=== PATIENT | female | born 1980 | race Hispanic/Latino ===

== ENCOUNTER 2018-01-27 17:50 | Emergency (ER) | payer MEDICAID ==
--- NOTE | 2018-01-27 19:21 | ER ---
Nurse's Notes [facility] Name: Kendal Contreras Age: 37 yrs Sex: Female : 1980 Arrival Date: 01/27/2018 Time: 17:52 Bed 25 Private MD: Diagnosis: Dental caries, unspecified Presentation: 01/27 17:56 Presenting complaint: Patient states: Right lower jaw pain from tooth with lost filling aj for 2 weeks. Transition of care: patient was not received from another setting of care. Onset of symptoms was January 27, 2018. Initial Sepsis Screen: Does the patient meet any 2 criteria? No. Patient's initial sepsis screen is negative. Does the patient have a suspected source of infection? No. Patient's initial sepsis screen is negative. Care prior to arrival: None. 17:56 Method Of Arrival: Ambulatory 17:56 Acuity: CHARLEY 5 aj Triage Assessment: 17:58 General: Appears in no apparent distress. comfortable, Behavior is calm, cooperative, aj appropriate for age. Pain: Complains of pain in lower right second molar and lower right third molar. Neuro: Level of Consciousness is awake, alert, obeys commands, Oriented to person, place, time, situation, Appropriate for age. Respiratory: Airway is patent Respiratory effort is even, unlabored, Respiratory pattern is regular, symmetrical. Derm: Skin is intact, is healthy with good turgor, Skin is pink, warm \T\ dry. normal. 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 - Social history:: Smoking status: Patient uses tobacco products, denies chronic smoking, but will smoke occasionally. Screenin:23 Abuse screen: Denies threats or abuse. Denies injuries from another. Nutritional kr2 screening: No deficits noted. Tuberculosis screening: No symptoms or risk factors identified. Fall Risk None identified. Assessment: 18:21 General: Appears in no apparent distress. uncomfortable, well groomed, well developed, kr2 well nourished, Behavior is calm, cooperative, appropriate for age. Pain: Complains of pain in lower right third molar and lower right second molar Pain radiates to mouth Pain currently is 10 out of 10 on a pain scale. Quality of pain is described as aching, Pain began gradually, Is continuous, Alleviated by nothing. Aggravated by eating. Neuro: Level of Consciousness is awake, alert, obeys commands, Oriented to person, place, time, situation, Appropriate for age. Cardiovascular: Capillary refill < 3 seconds in bilateral fingers Patient's skin is warm and dry. Respiratory: Airway is patent Respiratory effort is even, unlabored, Respiratory pattern is regular, symmetrical. GI: Abdomen is flat, non-distended. : No signs and/or symptoms were reported regarding the genitourinary system. EENT: Nares are clear bilaterally Oral mucosa is moist. Derm: Skin is intact, is healthy with good turgor. Musculoskeletal: Circulation, motion, and sensation intact. 19:34 Reassessment: Patient appears in no apparent distress at this time. Patient and/or kr2 family updated on plan of care and expected duration. Pain level reassessed. Patient is alert, oriented x 3, equal unlabored respirations, skin warm/dry/pink. Patient states she has taken Clindamycin, [place] and Motrin before without any adverse reactions. Vital Signs: 17:58 BP 109 / 74; Pulse 72; Resp 18; Temp 98.2; Pulse Ox 99% on R/A; Weight 108.86 kg; aj Height 5 ft. 7 in. (170.18 cm); Pain 10/10; 19:35 BP 110 / 72; Pulse 70; Resp 18; Pulse Ox 99% on R/A; kr2 17:58 Body Mass Index 37.59 (108.86 kg, 170.18 cm) ED Course: 17:52 Patient arrived in ED. mr 17:57 Triage completed. aj 17:58 Arm band placed on right wrist. Patient placed in an exam room. aj 18:08 Belén Lubin FNP-C [facility]. sn 18:08 Chinedu Fiore MD is Attending Physician. sn 18:08 Lidia, Kathleen, RN is Primary Nurse. kr2 18:23 Patient has correct armband on for positive identification. Bed in low position. Call kr2 light in reach. Side rails up X 1. Pulse ox on. NIBP on. Door closed. Head of bed elevated. 19:35 No provider procedures requiring assistance completed. Patient did not have IV access kr2 during this emergency room visit. Administered Medications: 19:26 Drug: Clindamycin 300 mg Route: PO; kr2 19:34 Follow up: Response: Medication administered at discharge. kr2 19:26 Drug: [place] 5 mg-325 mg 1 tabs Route: PO; kr2 19:34 Follow up: Response: Medication administered at discharge. kr2 19:26 Drug: Motrin 400 mg Route: PO; kr2 19:33 Follow up: Response: No adverse reaction; Medication administered at discharge. kr2 Outcome: 19:20 Discharge ordered by . snw 19:35 Discharged to home ambulatory, with family. kr2 19:35 Condition: good 19:35 Discharge instructions given to patient, Instructed on discharge instructions, follow up and referral plans. medication usage, Demonstrated understanding of instructions, follow-up care, medications, Prescriptions given X 2. 19:36 Patient left the ED. kr2 Signatures: Merary Villareal, RN Belén Andres, CHART CHANGER-C CHART CHANGER-Janice Weaver Karey, RN RN kr2
--- NOTE | 2018-01-27 19:21 | EDPHYS ---
Physician Documentation [facility] Name: Kendal Contreras Age: 37 yrs Sex: Female : 1980 Arrival Date: 01/27/2018 Time: 17:52 Bed 25 Private MD: ED Physician Chinedu Fiore HPI: 01/27 19:33 This 37 yrs old Female presents to ER via Ambulatory with complaints of Facial snw pain. 19:33 The patient presents with broken tooth/teeth. The problem is located in the upper right snw third molar (#1) and lower right second molar (#31). Onset: The symptoms/episode began/occurred 3 day(s) ago, and became persistent. Duration: The symptoms are continuous. Modifying factors: The symptoms are alleviated by nothing. Severity of symptoms: At their worst the symptoms were moderate, severe. It is unknown whether or not the patient has had similar symptoms in the past. sees [facility]. 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 - Social history:: Smoking status: Patient uses tobacco products, denies chronic smoking, but will smoke occasionally. ROS: 19:31 Constitutional: Negative for fever, chills, and weight loss, Eyes: Negative for injury, snw pain, redness, and discharge, Neck: Negative for injury, pain, and swelling, Cardiovascular: Negative for chest pain, palpitations, and edema, Respiratory: Negative for shortness of breath, cough, wheezing, and pleuritic chest pain, Abdomen/GI: Negative for abdominal pain, nausea, vomiting, diarrhea, and constipation, Back: Negative for injury and pain, : Negative for injury, bleeding, discharge, and swelling, MS/Extremity: Negative for injury and deformity, Skin: Negative for injury, rash, and discoloration, Neuro: Negative for headache, weakness, numbness, tingling, and seizure. 19:31 ENT: Positive for dental pain, of the lower right third molar (#32) and upper right third molar (#1). Exam: 19:29 Constitutional: This is a well developed, well nourished patient who is awake, alert, snw and in no acute distress. Head/Face: Normocephalic, atraumatic. Eyes: Pupils equal round and reactive to light, extra-ocular motions intact. Lids and lashes normal. Conjunctiva and sclera are non-icteric and not injected. Cornea within normal limits. Periorbital areas with no swelling, redness, or edema. Neck: Trachea midline, no thyromegaly or masses palpated, and no cervical lymphadenopathy. Supple, full range of motion without nuchal rigidity, or vertebral point tenderness. No Meningismus. Chest/axilla: Normal chest wall appearance and motion. Nontender with no deformity. No lesions are appreciated. Cardiovascular: Regular rate and rhythm with a normal S1 and S2. No gallops, murmurs, or rubs. Normal PMI, no JVD. No pulse deficits. Respiratory: Lungs have equal breath sounds bilaterally, clear to auscultation and percussion. No rales, rhonchi or wheezes noted. No increased work of breathing, no retractions or nasal flaring. Abdomen/GI: Soft, non-tender, with normal bowel sounds. No distension or tympany. No guarding or rebound. No evidence of tenderness throughout. Back: No spinal tenderness. No costovertebral tenderness. Full range of motion. Skin: Warm, dry with normal turgor. Normal color with no rashes, no lesions, and no evidence of cellulitis. MS/ Extremity: Pulses equal, no cyanosis. Neurovascular intact. Full, normal range of motion. Neuro: Awake and alert, GCS 15, oriented to person, place, time, and situation. Cranial nerves II-XII grossly intact. Motor strength 5/5 in all extremities. Sensory grossly intact. Cerebellar exam normal. Normal gait. Psych: Awake, alert, with orientation to person, place and time. Behavior, mood, and affect are within normal limits. 19:29 ENT: External ear(s): are unremarkable, Ear canal(s): are normal, Nose: is normal, Mouth: is normal, Posterior pharynx: is normal, Dental exam: dental caries, that is moderate, specifically in the upper right third molar (#1) and lower right third molar (#32), missing teeth, specifically the lower right second molar (#31). Vital Signs: 17:58 BP 109 / 74; Pulse 72; Resp 18; Temp 98.2; Pulse Ox 99% on R/A; Weight 108.86 kg; aj Height 5 ft. 7 in. (170.18 cm); Pain 10/10; 19:35 BP 110 / 72; Pulse 70; Resp 18; Pulse Ox 99% on R/A; kr2 17:58 Body Mass Index 37.59 (108.86 kg, 170.18 cm) aj MDM: 18:09 Patient medically screened. snw 19:32 Data reviewed: vital signs, nurses notes. Data interpreted: Pulse oximetry: on room air snw is 99 %. Interpretation: normal. Counseling: I had a detailed discussion with the patient and/or guardian regarding: the historical points, exam findings, and any diagnostic results supporting the discharge/admit diagnosis, the need for outpatient follow up, to return to the emergency department if symptoms worsen or persist or if there are any questions or concerns that arise at home. Special discussion: Based on the history and exam findings, there is no indication for further emergent testing or inpatient evaluation. I discussed with the patient/guardian the need to see a dentist for further evaluation of the symptoms. I discussed with the patient/guardian the need to see the primary care provider for further evaluation of the symptoms. Administered Medications: 19:26 Drug: Clindamycin 300 mg Route: PO; kr2 19:34 Follow up: Response: Medication administered at discharge. kr2 19:26 Drug: [place] 5 mg-325 mg 1 tabs Route: PO; kr2 19:34 Follow up: Response: Medication administered at discharge. kr2 19:26 Drug: Motrin 400 mg Route: PO; kr2 19:33 Follow up: Response: No adverse reaction; Medication administered at discharge. kr2 Disposition: 01/27/18 19:20 Discharged to Home. Impression: Dental caries, unspecified. - Condition is Stable. - Discharge Instructions: Dental Pain, Diet and Dental Disease. - Prescriptions for Clindamycin HCl 150 mg Oral Capsule - take 2 capsule by ORAL route every 8 hours for 10 days; 60 capsule. Diclofenac Sodium 75 mg Oral Tablet Sustained Release - take 1 tablet by ORAL route 2 times per day; 30 tablet. - Medication Reconciliation Form, Thank You Letter, Antibiotic Education, Prescription Opioid Use form. - Follow up: Private Physician; When: 2 - 3 days; Reason: Recheck today's complaints, Continuance of care, Re-evaluation by your physician. Follow up: Emergency Department; When: As needed; Reason: Worsening of condition. Addendum: 01/29/2018 07:04 Co-signature as Attending Physician, Chinedu Fiore MD I agree with the assessment and w a plan of care. Signatures: Merary Villareal, RN RN Belén Weston, STOCK SHEETS CLEANER INSPECTOR-C STOCK SHEETS CLEANER INSPECTOR-Csnw Chinedu Fiore MD MD wa Reaves, Karey, RN RN kr2 Corrections: (The following items were deleted from the chart) 01/27 19:36 19:20 01/27/2018 19:20 Discharged to Home. Impression: Dental caries, unspecified. kr2 Condition is Stable. Forms are Medication Reconciliation Form, Thank You Letter, Antibiotic Education, Prescription Opioid Use. Follow up: Private Physician; When: 2 - 3 days; Reason: Recheck today's complaints, Continuance of care, Re-evaluation by your physician. Follow up: Emergency Department; When: As needed; Reason: Worsening of condition. snw
[2018-01-27] MEDS ORDERED: CLINDAMYCIN HCL 150 MG CAP ONE (19:22)
[2018-01-27] MEDS ORDERED: HYDROCODONE/APAP 5/325 MG TAB ONE (19:22)
[2018-01-27] MEDS ORDERED: IBUPROFEN 400 MG TAB ONE (19:23)
== END 2018-01-27 19:36 | disposition home or self-care (01) ==
LOC: ER 17:50
DX: K02.9 Dental caries, unspecified (principal); I10 Essential (primary) hypertension; G43.909 Migraine, unspecified, not intractable, without status migrainosus; R56.9 Unspecified convulsions; F41.9 Anxiety disorder, unspecified
CPT/HCPCS: 99283

== ENCOUNTER 2018-02-09 09:05 | Emergency (ER) | payer MEDICAID, OTHER ==
[2018-02-09 10:01] LABS: Urine Blood NEGATIVE (NEG); Urine Glucose NEGATIVE (NEG); Urine Protein NEGATIVE (NEG); Urine Specific Gravity 1.025 (1.005-1.030)
--- NOTE | 2018-02-09 10:36 | RAD REPORT ---
EXAM DESCRIPTION: RAD - Chest Single View - 02/09/2018 10:20 am CLINICAL HISTORY: Chest pain. COMPARISON: 04/30/2017 FINDINGS: Portable technique limits examination quality. The lungs are grossly clear. The heart is normal in size. No displaced fractures. IMPRESSION: No acute intrathoracic process suspected.
[2018-02-09] MEDS ORDERED: NA CHLORIDE 0.9% 1,000 ML ONE (11:14)
[2018-02-09] MEDS ORDERED: FOSPHENYTOIN PE 500 MG/10 ML VIAL ONE (11:14)
[2018-02-09 11:19] LABS: Hematocrit 45.2 % (36.0-45.0); MCH 29.5 pg (27.0-35.0); MCV 88.5 fL (80-100); RBC Red Blood Cell Count 5.11 M/uL (3.86-4.86)
[2018-02-09 11:20] LABS: Absolute Lymphocytes (CBC) 2.3 K/uL (0.7-4.9); Absolute Monocytes 0.5 K/uL (0.1-1.3); Basophils % 0.7 % (0-1.3); Eosinophils % 0.3 % (0-4.4); Lymphocytes % 25.8 % (15.3-44.8); MPV 9.4 fL (7.6-11.3); Monocytes % 5.8 % (3.3-12.3)
[2018-02-09] MEDS ORDERED: FOSPHENYTOIN PE 1,000 MG in NA CHLORIDE 0.9% 100 ML IV ONE (11:30)
[2018-02-09 11:36] LABS: Potassium 3.7 mEq/L (3.6-5.0)
[2018-02-09 11:38] LABS: Protime INR 1.08
[2018-02-09 11:42] LABS: Albumin 4.1 g/dL (3.2-5.5); Bilirubin Direct 0.1 mg/dL (0-0.2); Bilirubin Total 0.7 mg/dL (0.3-1.2); Magnesium 1.9 mg/dL (1.8-2.5); Protein, Total 7.4 g/dL (6.0-8.3)
--- NOTE | 2018-02-09 11:54 | EDPHYS ---
Physician Documentation [facility] Name: Kendal Contreras Age: 37 yrs Sex: Female : 1980 Arrival Date: 02/09/2018 Time: 09:13 Bed 19 Private MD: ED Physician Jorje Laura HPI: 02/09 10:28 This 37 yrs old Female presents to ER via Ambulatory with complaints of leeanne Vomiting, Chest Pain, Seizure. 10:28 The patient presents to the emergency department with nausea. Onset: The leeanne symptoms/episode began/occurred 2 day(s) ago. Possible causes: unknown. The symptoms are aggravated by nothing. The symptoms are alleviated by nothing. Associated signs and symptoms: The patient has no apparent associated signs or symptoms. Severity of symptoms: At their worst the symptoms were mild in the emergency department the symptoms are unchanged. The patient has not experienced similar symptoms in the past. 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 - Social history:: Smoking status: Patient uses tobacco products, denies chronic smoking, but will smoke occasionally. - Family history:: not pertinent. ROS: 10:28 Constitutional: Negative for fever, chills, and weight loss, Eyes: Negative for injury, leeanne pain, redness, and discharge, ENT: Negative for injury, pain, and discharge, Neck: Negative for injury, pain, and swelling, Cardiovascular: Negative for chest pain, palpitations, and edema, Respiratory: Negative for shortness of breath, cough, wheezing, and pleuritic chest pain, Abdomen/GI: Negative for abdominal pain, nausea, vomiting, diarrhea, and constipation, Back: Negative for injury and pain, : Negative for injury, bleeding, discharge, and swelling, MS/Extremity: Negative for injury and deformity, Skin: Negative for injury, rash, and discoloration, Neuro: Negative for headache, weakness, numbness, tingling, and seizure, Psych: Negative for depression, anxiety, suicide ideation, homicidal ideation, and hallucinations, Allergy/Immunology: Negative for hives, rash, and allergies, Endocrine: Negative for neck swelling, polydipsia, polyuria, polyphagia, and marked weight changes, Hematologic/Lymphatic: Negative for swollen nodes, abnormal bleeding, and unusual bruising. Exam: 10:29 Constitutional: This is a well developed, well nourished patient who is awake, alert, leeanne and in no acute distress. Head/Face: Normocephalic, atraumatic. Eyes: Pupils equal round and reactive to light, extra-ocular motions intact. Lids and lashes normal. Conjunctiva and sclera are non-icteric and not injected. Cornea within normal limits. Periorbital areas with no swelling, redness, or edema. ENT: Nares patent. No nasal discharge, no septal abnormalities noted. Tympanic membranes are normal and external auditory canals are clear. Oropharynx with no redness, swelling, or masses, exudates, or evidence of obstruction, uvula midline. Mucous membranes moist. Neck: Trachea midline, no thyromegaly or masses palpated, and no cervical lymphadenopathy. Supple, full range of motion without nuchal rigidity, or vertebral point tenderness. No Meningismus. Chest/axilla: Normal chest wall appearance and motion. Nontender with no deformity. No lesions are appreciated. Cardiovascular: Regular rate and rhythm with a normal S1 and S2. No gallops, murmurs, or rubs. Normal PMI, no JVD. No pulse deficits. Respiratory: Lungs have equal breath sounds bilaterally, clear to auscultation and percussion. No rales, rhonchi or wheezes noted. No increased work of breathing, no retractions or nasal flaring. Abdomen/GI: Soft, non-tender, with normal bowel sounds. No distension or tympany. No guarding or rebound. No evidence of tenderness throughout. Back: No spinal tenderness. No costovertebral tenderness. Full range of motion. Skin: Warm, dry with normal turgor. Normal color with no rashes, no lesions, and no evidence of cellulitis. MS/ Extremity: Pulses equal, no cyanosis. Neurovascular intact. Full, normal range of motion. Neuro: Awake and alert, GCS 15, oriented to person, place, time, and situation. Cranial nerves II-XII grossly intact. Motor strength 5/5 in all extremities. Sensory grossly intact. Cerebellar exam normal. Normal gait. Psych: Awake, alert, with orientation to person, place and time. Behavior, mood, and affect are within normal limits. 11:52 Musculoskeletal/extremity: DVT Exam: No signs of deep vein thrombosis. no pain, no leeanne swelling, no tenderness, negative Homans' sign noted on exam, no appreciated bluish discoloration, no erythema, no increased warmth. Vital Signs: 09:22 BP 104 / 71; Pulse 55; Resp 18; Temp 97.9; Pulse Ox 100% on R/A; Weight 108.86 kg; ph Height 5 ft. 7 in. (170.18 cm); Pain 9/10; 11:22 BP 124 / 84; Pulse 60; Resp 18; Temp 97.8; Pulse Ox 99% on R/A; Pain 8/10; ch 09:22 Body Mass Index 37.59 (108.86 kg, 170.18 cm) ph MDM: 09:34 Patient medically screened. [facility] 10:30 Data reviewed: vital signs, nurses notes, lab test result(s), EKG, radiologic studies, [facility] plain films. 02/09 09:40 Order name: Urine Dipstick--Ancillary (enter results); Complete Time: 11:52 02/09 09:40 Order name: Urine --Ancillary (enter results); Complete Time: 11:52 02/09 10:07 Order name: Basic Metabolic Panel 02/09 10:07 Order name: BNP; Complete Time: 11:52 02/09 10:07 Order name: CBC with Diff; Complete Time: 11:52 02/09 10:07 Order name: Ckmb 02/09 10:07 Order name: CPK 02/09 10:07 Order name: LFT's 02/09 10:07 Order name: Magnesium 02/09 10:07 Order name: PT-INR; Complete Time: 11:52 02/09 10:07 Order name: Ptt, Activated; Complete Time: 11:52 02/09 10:07 Order name: Troponin (emerg Dept Use Only); Complete Time: 11:52 02/09 10:07 Order name: XRAY Chest (1 view); Complete Time: 11:52 02/09 10:27 Order name: Dilantin; Complete Time: 11:52 [facility] 02/09 10:07 Order name: EKG; Complete Time: 10:08 02/09 10:07 Order name: Cardiac monitoring; Complete Time: 17:59 02/09 10:07 Order name: EKG - Nurse/Tech; Complete Time: 17:59 02/09 10:07 Order name: IV Saline Lock; Complete Time: 17:59 02/09 10:07 Order name: Labs collected and sent; Complete Time: 17:59 02/09 10:07 Order name: O2 Per Protocol; Complete Time: 17:59 02/09 10:07 Order name: O2 Sat Monitoring; Complete Time: 17:59 02/09 10:07 Order name: Urine Dipstick-Ancillary (obtain specimen); Complete Time: 17:59 ch Administered Medications: 11:24 Drug: NS 0.9% 1000 ml Route: IV; Rate: 1 bolus; Site: left forearm; ch 11:41 Drug: Fosphenytoin 1 grams Route: IVPB; Site: left forearm; ch 12:19 Follow up: IV Status: Completed infusion pt 12:25 Drug: Benadryl 12.5 mg Route: IVP; Site: left forearm; ch 13:02 Follow up: Response: No adverse reaction; Marked relief of symptoms Disposition: 02/09/18 11:53 Discharged to Home. Impression: Weakness, Epilepsy and recurrent seizures - history of, Vomiting, Other chest pain. - Condition is Stable. - Discharge Instructions: Seizure, Adult, Weakness, Fatigue, Seizure, Adult, [id number], Weakness, [id number]. - Prescriptions for Dilantin Kapseal 100 mg Oral Capsule - take 1 capsule by ORAL route every 8 hours; 30 capsule. Zofran 4 mg Oral Tablet - take 1 tablet by ORAL route every 12 hours As needed; 20 tablet. - Medication Reconciliation Form, Thank You Letter, Antibiotic Education, Prescription Opioid Use form. - Follow up: Private Physician; When: 2 - 3 days; Reason: Recheck today's complaints, Continuance of care, Re-evaluation by your physician. Follow up: David Diaz; When: 2 - 3 days; Reason: Recheck today's complaints, Continuance of care, Re-evaluation by your physician. - Problem is new. - Symptoms have improved. Signatures: Dispatcher [employer] EDMS Taylor Atkinson bd Rebecca Rosario RN RN Jorje Sharp MD MD cha Hall, Patricia RN RN elida Petersen, Letty ARANGO pt Corrections: (The following items were deleted from the chart) 11:54 11:53 02/09/2018 11:53 Discharged to Home. Impression: Weakness; Epilepsy and recurrent leeanne seizures - history of. Condition is Stable. Discharge Instructions: Weakness, Fatigue, Weakness, [id number], Seizure, Adult, Seizure, Adult, [id number]. Prescriptions for Dilantin Kapseal 100 mg Oral Capsule - take 1 capsule by ORAL route every 8 hours; 30 capsule. and Forms are Medication Reconciliation Form, Thank You Letter, Antibiotic Education, Prescription Opioid Use. Follow up: Private Physician; When: 2 - 3 days; Reason: Recheck today's complaints, Continuance of care, Re-evaluation by your physician. Follow up: David Daiz; When: 2 - 3 days; Reason: Recheck today's complaints, Continuance of care, Re-evaluation by your physician. Problem is new. Symptoms have improved. [facility] 13:32 11:54 02/09/2018 11:53 Discharged to Home. Impression: Weakness; Epilepsy and recurrent bd seizures - history of; Vomiting; Other chest pain. Condition is Stable. Discharge Instructions: Weakness, Fatigue, Weakness, [id number]-ib-[id number], Seizure, Adult, Seizure, Adult, Fave-be-Tyng. Prescriptions for Dilantin Kapseal 100 mg Oral Capsule - take 1 capsule by ORAL route every 8 hours; 30 capsule. and Forms are Medication Reconciliation Form, Thank You Letter, Antibiotic Education, Prescription Opioid Use. Follow up: Private Physician; When: 2 - 3 days; Reason: Recheck today's complaints, Continuance of care, Re-evaluation by your physician. Follow up: David Diaz; When: 2 - 3 days; Reason: Recheck today's complaints, Continuance of care, Re-evaluation by your physician. Problem is new. Symptoms have improved. leeanne
--- NOTE | 2018-02-09 11:54 | ER ---
Nurse's Notes [facility] Name: Kendal Contreras Age: 37 yrs Sex: Female : 1980 Arrival Date: 02/09/2018 Time: 09:13 Bed 19 Private MD: Diagnosis: Weakness;Epilepsy and recurrent seizures-history of;Vomiting;Other chest pain Presentation: 02/09 09:18 Presenting complaint: Patient states: "I've been having chest pain and vomiting and ph having seizures for the past 5 days. I've also been very depressed feeling." Reports N/V, chest pain, SOB, and unknown amount of seizures, reports seizure hx, has not taken dilantin for 2 weeks. Transition of care: patient was not received from another setting of care. Onset of symptoms was February 09, 2018. Initial Sepsis Screen: Does the patient meet any 2 criteria? No. Patient's initial sepsis screen is negative. Does the patient have a suspected source of infection? No. Patient's initial sepsis screen is negative. Care prior to arrival: None. 09:18 Method Of Arrival: Ambulatory ph 09:18 Acuity: CHARLEY 3 ph CHANCELLOR: 09:22 LMP N/A - Hysterectomy ph Historical: - Home Meds: 09:21 Dilantin Oral [Active]; Hydrochlorothiazide Oral [Active]; Lasix Oral [Active]; Topamax ph Oral [Active]; Trazodone Oral [Active]; - PMHx: 09:21 Anxiety; Asthma; HEART FAILURE; Hypertension; Migraines; Seizures; ph - PSHx: 09:21 Hysterectomy; Knee surgery; ph - Immunization history:: Adult Immunizations up to date. - Social history:: Smoking status: Patient uses tobacco products, denies chronic smoking, but will smoke occasionally. - Family history:: not pertinent. Screenin:46 Abuse screen: Denies threats or abuse. Denies injuries from another. Nutritional ch screening: No deficits noted. Tuberculosis screening: No symptoms or risk factors identified. Fall Risk None identified. Assessment: 10:46 General: Appears in no apparent distress. comfortable, Behavior is calm, cooperative, ch appropriate for age. Pain: Complains of pain in chest Pain currently is 8 out of 10 on a pain scale. Pain began suddenly. Neuro: Level of Consciousness is awake, alert, obeys commands, Oriented to person, place, time, situation, Contract Manager are equal bilaterally Moves all extremities. Full function Gait is steady, Speech is normal, Facial symmetry appears normal, Facial symmetry: tongue is midline, Pupils are PERRLA. Respiratory: Airway is patent Respiratory effort is even, unlabored, Breath sounds are clear bilaterally. GI: Abdomen is round non-distended, obese, Bowel sounds present X 4 quads. Abd is soft and non tender X 4 quads. Reports nausea, vomiting. : No signs and/or symptoms were reported regarding the genitourinary system. Derm: Skin is pink, warm \\T\\ dry. 11:22 Reassessment: Patient appears in no apparent distress at this time. Patient and/or ch family updated on plan of care and expected duration. Pain level reassessed. Patient is alert, oriented x 3, equal unlabored respirations, skin warm/dry/pink. Patient states feeling better. Patient states symptoms have improved. Vital Signs: 09:22 BP 104 / 71; Pulse 55; Resp 18; Temp 97.9; Pulse Ox 100% on R/A; Weight 108.86 kg; ph Height 5 ft. 7 in. (170.18 cm); Pain 9/10; 11:22 BP 124 / 84; Pulse 60; Resp 18; Temp 97.8; Pulse Ox 99% on R/A; Pain 8/10; ch 09:22 Body Mass Index 37.59 (108.86 kg, 170.18 cm) ph ED Course: 09:13 Patient arrived in ED. sb2 09:21 Triage completed. ph 09:22 Arm band placed on. ph 09:34 Jorje Laura MD is Attending Physician. leeanne 10:07 Rebecca Rosario, NBA is Primary Nurse. ch 10:14 X-ray completed. Portable x-ray completed in exam room. jr1 10:19 XRAY Chest (1 view) In Process Unspecified. EDMS 10:21 EKG done, by communications technologist. reviewed by Jorje Laura MD. at1 10:46 Patient has correct armband on for positive identification. Bed in low position. Call light in reach. Side rails up X 1. Adult w/ patient. phototypesetting equipment monitor on. Pulse ox on. NIBP on. 10:46 No provider procedures requiring assistance completed. ch 11:22 No apparent distress. Resting quietly. ch 11:22 Inserted saline lock: 22 gauge in left forearm, using aseptic technique. Blood ch collected. 11:52 David Diaz MD is Referral Physician. leeanne Administered Medications: 11:24 Drug: NS 0.9% 1000 ml Route: IV; Rate: 1 bolus; Site: left forearm; ch 11:41 Drug: Fosphenytoin 1 grams Route: IVPB; Site: left forearm; ch 12:19 Follow up: IV Status: Completed infusion pt 12:25 Drug: Benadryl 12.5 mg Route: IVP; Site: left forearm; ch 13:02 Follow up: Response: No adverse reaction; Marked relief of symptoms ch Outcome: 11:53 Discharge ordered by . leeanne 13:32 Patient left the ED. bd Signatures: Dispatcher [employer] EDMS Taylor Atkinson Christina, RN RN Jorje Sharp MD MD cha Townsend, Paige, RN RN pt Erin Samson jr1 Merary kessler, subscription clerk EKG Tat1 Anamaria Manuel RN RN Roro Asif sb2
[2018-02-09 11:58] LABS: CKMB Creatine Kinase MB 0.6 ng/ml (0.3-4.0)
[2018-02-09] MEDS ORDERED: DIPHENHYDRAMINE 50 MG/ML VIAL ONE (12:07)
--- NOTE | 2018-02-09 15:28 | EKG ---
Test Date: 2018-02-09 Test Time: 10:14:39 Machine Stonecutter: RADHA MEASUREMENT RESULTS: Intervals: Rate: 53 MN: 162 QRSD: 92 QT: 444 QTc: 416 [place]: P: 42 MN: 162 QRS: 11 T: 26 INTERPRETIVE STATEMENTS: Sinus bradycardia Otherwise normal ECG Compared to ECG 04/12/2017 02:16:28 No significant changes Electronically Signed On 02-09-18 15:25:47 CDT by Iglesia Perez
== END 2018-02-09 13:32 | disposition home or self-care (01) ==
LOC: ER 09:05
DX: R11.10 Vomiting, unspecified (principal); R07.89 Other chest pain; G40.909 Epilepsy, unspecified, not intractable, without status epilepticus; I10 Essential (primary) hypertension; F41.9 Anxiety disorder, unspecified; I50.9 Heart failure, unspecified; Z72.0 Tobacco use
CPT/HCPCS: 36415; 71045; 80048; 80076; 80185; 81003; 81025; 82550; 82553; 83735; 83880; 84484; 85025; 85610; 85730; 93005; 96365; 96375; 99284; J7030; Q2009

== ENCOUNTER 2018-04-21 09:52 | Emergency (ER) | payer MEDICAID, OTHER ==
[2018-04-21] MEDS ORDERED: HYDROCODONE/APAP 7.5/325 MG TAB ONE (10:29)
--- NOTE | 2018-04-21 11:34 | RAD REPORT ---
EXAM DESCRIPTION: VAS - Extremity Venous Uni Ltd - 04/21/2018 10:44 am CLINICAL HISTORY: PAIN Leg swelling and edema. COMPARISON: No comparisons FINDINGS: Right lower extremity venous system was interrogated with Doppler technique. Normal flow, compressibility and augmentation was noted. There is no DVT present. IMPRESSION: No evidence of right lower extremity deep venous thrombosis.
--- NOTE | 2018-04-21 11:43 | RAD REPORT ---
EXAM DESCRIPTION: RAD - Knee Right 3 View - 04/21/2018 10:47 am CLINICAL HISTORY: PAIN COMPARISON: No comparisons FINDINGS: Small screw is noted in the proximal tibia anteriorly. No fracture, dislocation or aggress anton marrow pattern. Trace suprapatellar joint effusion is present.
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
--- NOTE | 2018-04-21 11:49 | ER ---
Nurse's Notes [facility] Name: Kendal Contreras Age: 37 yrs Sex: Female : 1980 Arrival Date: 04/21/2018 Time: 09:55 Bed 15 Private MD: out of town, doctor Diagnosis: Pain in right lower leg;Morbid (severe) obesity due to excess calories Presentation: 04/21 10:04 Presenting complaint: Patient states: right leg pain started about a week ago. Pt sv reports pain with weight bearing or ROM and numbness. Reports hx of right leg surgery. Transition of care: patient was not received from another setting of care. Onset of symptoms was April 14, 2018. Care prior to arrival: None. 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 - Social history:: Smoking status: Patient/guardian denies using tobacco. - Ebola Screening: : No symptoms or risks identified at this time. - Family history:: not pertinent. - Hospitalizations: : No recent hospitalization is reported. Screenin:32 Abuse screen: Denies threats or abuse. Denies injuries from another. Nutritional aj1 screening: No deficits noted. Tuberculosis screening: No symptoms or risk factors identified. Assessment: 10:32 General: Appears in no apparent distress. uncomfortable, Behavior is calm, cooperative, aj1 appropriate for age. Pain: Complains of pain in posterior aspect of right knee, right calf and right knee Pain does not radiate. Pain currently is 8 out of 10 on a pain scale. Pain began one week ago Alleviated by rest, Aggravated by repositioning, weight bearing. Neuro: Level of Consciousness is awake, alert, obeys commands. Cardiovascular: Patient's skin is warm and dry. Respiratory: Airway is patent Respiratory effort is even, unlabored, Respiratory pattern is regular, symmetrical. GI: No signs and/or symptoms were reported involving the gastrointestinal system. : No signs and/or symptoms were reported regarding the genitourinary system. EENT: No signs and/or symptoms were reported regarding the EENT system. Derm: No signs and/or symptoms reported regarding the dermatologic system. Skin is pink, warm \T\ dry. normal. Musculoskeletal: Range of motion: limited in right knee Swelling present in right leg. 10:35 Reassessment: Ultrasound at bedside. aj1 11:47 Reassessment: Patient appears in no apparent distress at this time. No changes from aj1 previously documented assessment. Patient and/or family updated on plan of care and expected duration. Pain level reassessed. Patient is alert, oriented x 3, equal unlabored respirations, skin warm/dry/pink. 12:22 Reassessment: BITA wrap to right knee . aa5 12:23 Reassessment: Patient is alert, oriented x 3, equal unlabored respirations, skin aa5 warm/dry/pink. Vital Signs: 10:07 BP 121 / 82; Pulse 76; Resp 18; Temp 98.4(TE); Pulse Ox 98% ; Weight 108.86 kg; Height sv 5 ft. 7 in. (170.18 cm); Pain 8/10; 10:07 Body Mass Index 37.59 (108.86 kg, 170.18 cm) sv ED Course: 09:55 Patient arrived in ED. mr 09:56 out of town, doctor is Private Physician. mr 10:05 Triage completed. sv 10:06 Arm band placed on right wrist. sv 10:10 Virginia Biswas, NBA is Primary Nurse. aj1 10:12 Cecy Womack FNP is PHCP. kav 10:12 Giovani Brooks MD is Attending Physician. kav 10:13 Cecy Womack FNP is PHCP. kav 10:14 Cecy Womack FNP is PHCP. kav 10:32 Patient has correct armband on for positive identification. Bed in low position. Call aj1 light in reach. Side rails up X 1. 10:32 No provider procedures requiring assistance completed. aj1 10:41 Ultrasound completed. aa4 10:42 Extremity Venous Uni Ltd US In Process Unspecified. EDMS 10:43 X-ray completed. Portable x-ray completed in exam room. Patient tolerated procedure jb2 well. 10:45 XRAY Knee RIGHT 3 view In Process Unspecified. EDMS 12:23 Patient did not have IV access during this emergency room visit. aa5 Administered Medications: 10:32 Drug: [place] (7.5 mg-325 mg) 1 tabs Route: PO; aj1 12:22 Follow up: Response: No adverse reaction aa5 Outcome: 11:49 Discharge ordered by MD. kav 12:23 Discharged to home via wheelchair, with crutches. aa5 12:23 Condition: stable 12:23 Discharge instructions given to patient, Instructed on discharge instructions, follow up and referral plans. medication usage, crutch walking, Demonstrated understanding of instructions, follow-up care, medications, crutch walking, Prescriptions given X 2. 12:23 Patient left the ED. aa5 Signatures: Dispatcher [employer] EDVirginia Sheppard RN RN ajLaura Richards RN RN sv Cecy Womack, MEDICAL BILLING ASSOCIATE MEDICAL BILLING ASSOCIATE Janice Mohan mr Haro, Alexandru jb2 Merary Lopez aa4 Susie Florez, RN RN aa5 Corrections: (The following items were deleted from the chart) 10:07 10:04 Presenting complaint: Patient states: right leg pain started about a week ago. Pt sv reports pain with weight bearing or ROM. Reports hx of right leg surgery. sv
== END 2018-04-21 12:23 | disposition home or self-care (01) ==
LOC: ER 09:52
DX: M79.661 Pain in right lower leg (principal); E66.01 Morbid (severe) obesity due to excess calories; I10 Essential (primary) hypertension; G40.909 Epilepsy, unspecified, not intractable, without status epilepticus; J45.909 Unspecified asthma, uncomplicated; I50.9 Heart failure, unspecified
CPT/HCPCS: 93971; 99284

== ENCOUNTER 2018-07-11 13:43 | Emergency (ER) | payer MEDICAID ==
[2018-07-11 16:16] LABS: Absolute Lymphocytes (CBC) 2.4 K/uL (0.7-4.9); Absolute Monocytes 0.5 K/uL (0.1-1.3); Absolute Neutrophil 5.6 K/uL (1.8-8.0); Basophils % 0.3 % (0-1.3); Eosinophils % 0.2 % (0-4.4); Hematocrit 41.2 % (36.0-45.0); Lymphocytes % 28.4 % (15.3-44.8); MCH 29.6 pg (27.0-35.0); MCV 87.1 fL (80-100); RBC Red Blood Cell Count 4.73 M/uL (3.86-4.86)
[2018-07-11] MEDS ORDERED: FOSPHENYTOIN PE 500 MG/10 ML VIAL ONE (16:34)
[2018-07-11] MEDS ORDERED: NA CHLORIDE 0.9% 1,000 ML ONE (16:34)
[2018-07-11] MEDS ORDERED: NA CHLORIDE 0.9% 100 ML IV ONE (16:41)
--- NOTE | 2018-07-11 16:46 | RAD REPORT ---
EXAM DESCRIPTION: RAD - Chest Single View - 07/11/2018 4:31 pm CLINICAL HISTORY: COUGH Chest pain. COMPARISON: Chest Single View dated 02/09/2018; Chest Pa And Lat (2 Views) dated 04/30/2017; Chest Sing le View dated 04/12/2017 FINDINGS: Portable technique limits examination quality. The lungs are grossly clear. The heart is normal in size. No displaced fractures. IMPRESSION: No acute intrathoracic process suspected.
[2018-07-11] MEDS ORDERED: DIPHENHYDRAMINE 12.5MG/5ML LIQ ONE (17:01)
[2018-07-11 17:19] LABS: Urine Bacteria <20 /HPF (<20); Urine Culture Reflex Order NOT NEEDED; Urine RBC <5 /HPF (NONE SEEN)
--- NOTE | 2018-07-11 18:58 | EDPHYS ---
Physician Documentation [facility] Name: Kendal Contreras Age: 37 yrs Sex: Female : 1980 Arrival Date: 07/11/2018 Time: 13:46 Bed 25 Private MD: ED Physician Alex Nguyen HPI: 07/11 16:06 This 37 yrs old Female presents to ER via Ambulatory with complaints of ma2 Probable Seizure. 16:06 The patient presents with a history of multiple seizures. Seizure onset: just prior to ma2 arrival. Context: occurred at home, at a friend's home. Seizure Hx: Last seizure: The patient's last seizure was approximately 3 month(s) ago. Associated injury: The patient did not suffer any apparent associated injury. Current symptoms: Currently, the patient is not experiencing any symptoms. The patient has experienced similar episodes in the past. not taking her dilantin . 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 - Social history:: Smoking status: Patient/guardian denies using tobacco, Patient/guardian denies using alcohol, Patient/guardian denies using street drugs, The patient lives with family. - Ebola Screening: : Patient negative for fever greater than or equal to 101.5 degrees Fahrenheit, and additional compatible Ebola Virus Disease symptoms Patient denies exposure to infectious person Patient denies travel to an Ebola-affected area in the 21 days before illness onset. - Family history:: not pertinent. ROS: 16:06 Constitutional: Negative for fever, chills, and weight loss, Cardiovascular: Negative ma2 for chest pain, palpitations, and edema, Respiratory: Negative for shortness of breath, cough, wheezing, and pleuritic chest pain, Abdomen/GI: Negative for abdominal pain, nausea, diarrhea, and constipation, Back: Negative for injury and pain, MS/Extremity: Negative for injury and deformity, Skin: Negative for injury, rash, and discoloration, Psych: Negative for depression, anxiety, suicide ideation, homicidal ideation, and hallucinations. 16:06 Neuro: Positive for seizure activity, Negative for dizziness, hearing loss, weakness, acute changes. 16:06 All other systems are negative. ma2 Exam: 16:06 Constitutional: This is a well developed, well nourished patient who is awake, alert, ma2 and in no acute distress. Neck: Trachea midline, no thyromegaly or masses palpated, and no cervical lymphadenopathy. Supple, full range of motion without nuchal rigidity, or vertebral point tenderness. No Meningismus. Chest/axilla: Normal chest wall appearance and motion. Nontender with no deformity. No lesions are appreciated. Cardiovascular: Regular rate and rhythm with a normal S1 and S2. No gallops, murmurs, or rubs. Normal PMI, no JVD. No pulse deficits. Respiratory: Lungs have equal breath sounds bilaterally, clear to auscultation and percussion. No rales, rhonchi or wheezes noted. No increased work of breathing, no retractions or nasal flaring. Abdomen/GI: Soft, non-tender, with normal bowel sounds. No distension or tympany. No guarding or rebound. No evidence of tenderness throughout. MS/ Extremity: Pulses equal, no cyanosis. Neurovascular intact. Full, normal range of motion. Neuro: Awake and alert, GCS 15, oriented to person, place, time, and situation. Cranial nerves II-XII grossly intact. Motor strength 5/5 in all extremities. Sensory grossly intact. Cerebellar exam normal. Normal gait. Vital Signs: 13:53 BP 112 / 79; Pulse 68; Resp 18; Temp 98.5(O); Pulse Ox 100% on R/A; Weight 108.86 kg; Height 5 ft. 7 in. (170.18 cm); 14:12 BP 102 / 61 LA Supine (auto/lg); Pulse 64 MON; Resp 19 S; Temp 98.2(O); Pulse Ox 98% on mb4 R/A; 14:39 BP 110 / 69 LA Supine (auto/lg); Pulse 61 MON; Resp 20; Pulse Ox 96% on R/A; mb4 16:57 BP 115 / 79; Pulse 70; Resp 18; Pulse Ox 100% ; tl3 19:16 BP 103 / 62; Pulse 63; Resp 18; Pulse Ox 100% on R/A; tl3 13:53 Body Mass Index 37.59 (108.86 kg, 170.18 cm) Finley Coma Score: 13:54 Eye Response: spontaneous(4). Verbal Response: oriented(5). Motor Response: obeys commands(6). Total: 15. MDM: 14:55 Patient medically screened. ma2 16:06 Differential diagnosis: seizure, TIA, likely break through seizure d/t not taking her ma2 medication . 18:57 Data reviewed: vital signs, nurses notes, lab test result(s), EKG, radiologic studies. ma2 Counseling: I had a detailed discussion with the patient and/or guardian regarding: the historical points, exam findings, and any diagnostic results supporting the discharge/admit diagnosis, the presence of at least one elevated blood pressure reading (>120/80) during this emergency department visit. Response to treatment: the patient's symptoms have resolved after treatment. 07/11 15:33 Order name: CBC with Diff; Complete Time: 17:11 ma2 07/11 15:33 Order name: Creatinine for Radiology; Complete Time: 17:11 [facility] 07/11 15:34 Order name: Urine Microscopic Only; Complete Time: 18:25 ma2 07/11 16:16 Order name: Urine Dipstick--Ancillary (enter results) 07/11 15:33 Order name: IV Saline Lock; Complete Time: 16:57 ma2 07/11 15:34 Order name: Chest Single View XRAY; Complete Time: 17:11 ma2 07/11 16:16 Order name: Urine --Ancillary (enter results) 07/11 16:17 Order name: Urine Dipstick-Ancillary [facility] 07/11 16:17 Order name: Urine --Ancillary [facility] 07/11 15:33 Order name: Labs collected and sent; Complete Time: 16:57 ma2 07/11 15:34 Order name: Urine Dipstick-Ancillary (obtain specimen); Complete Time: 16:23 ma2 Administered Medications: 16:49 Drug: Fosphenytoin 20 mg/kg Route: IVPB; Infused Over: 1 hrs; Site: right forearm; tl3 Delivery: Primary tubing; 19:13 Follow up: IV Status: Completed infusion; IV Intake: 100ml tl3 16:50 Drug: NS 0.9% 1000 ml Route: IV; Rate: 1 bolus; Site: right forearm; Delivery: Primary tl3 tubing; 19:14 Follow up: IV Status: Completed infusion; IV Intake: 1000ml tl3 16:57 Drug: Benadryl 25 mg Route: PO; tl3 19:14 Follow up: Response: No adverse reaction tl3 Disposition: 07/11/18 18:57 Discharged to Home. Impression: Epilepsy and recurrent seizures. - Condition is Stable. - Discharge Instructions: Seizure, Pediatric. - Medication Reconciliation Form, Thank You Letter, Antibiotic Education, Prescription Opioid Use form. - Follow up: Private Physician; When: Tomorrow; Reason: Continuance of care. - Problem is new. - Symptoms are unchanged. Signatures: Dispatcher [employer] EDMS Terrence Dudley RN RN Alex Horton MD MD fl2 Ellen Turner RN RN tl3 Corrections: (The following items were deleted from the chart) 19:01 15:34 BASIC METABOLIC PANEL+C.LAB.BRZ ordered. EDMS EDMS 19:01 15:34 HEPATIC FUNCTION+C.LAB.BRZ ordered. EDMN EDMS 19:18 18:57 07/11/2018 18:57 Discharged to Home. Impression: Epilepsy and recurrent seizures. tl3 Condition is Stable. Forms are Medication Reconciliation Form, Thank You Letter, Antibiotic Education, Prescription Opioid Use. Follow up: Private Physician; When: Tomorrow; Reason: Continuance of care. Problem is new. Symptoms are unchanged. alessandro
--- NOTE | 2018-07-11 18:58 | ER ---
Nurse's Notes [facility] Name: Kendal Contreras Age: 37 yrs Sex: Female : 1980 Arrival Date: 07/11/2018 Time: 13:46 Bed 25 Private MD: Diagnosis: Epilepsy and recurrent seizures Presentation: 07/11 13:50 Presenting complaint: states: shes been having seizure for a week now and today hj its gotten worse, 5-6x; shes on seizure meds; last was 20 mins ago; pt states "i just feel week and my chest hurts;. Transition of care: patient was not received from another setting of care. Onset of symptoms was July 11, 2018. Risk Assessment: Do you want to hurt yourself or someone else? Patient reports no desire to harm self or others. Initial Sepsis Screen: Does the patient meet any 2 criteria? No. Patient's initial sepsis screen is negative. Does the patient have a suspected source of infection? No. Patient's initial sepsis screen is negative. Care prior to arrival: None. 13:50 Method Of Arrival: Ambulatory 13:50 Acuity: CHARLEY 3 Triage Assessment: 13:52 General: Appears in no apparent distress. uncomfortable, Behavior is uncooperative. 13:54 Pain: Complains of pain in chest. Neuro: Level of Consciousness is awake, alert, obeys commands, Oriented to person, place, time, situation, Appropriate for age. 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 - Social history:: Smoking status: Patient/guardian denies using tobacco, Patient/guardian denies using alcohol, Patient/guardian denies using street drugs, The patient lives with family. - Ebola Screening: : Patient negative for fever greater than or equal to 101.5 degrees Fahrenheit, and additional compatible Ebola Virus Disease symptoms Patient denies exposure to infectious person Patient denies travel to an Ebola-affected area in the 21 days before illness onset. - Family history:: not pertinent. Screenin:52 Abuse screen: Denies threats or abuse. Denies injuries from another. Nutritional hj screening: No deficits noted. Tuberculosis screening: No symptoms or risk factors identified. Fall Risk None identified. Assessment: 14:40 General: Appears in no apparent distress. well groomed, well developed, well nourished, tl3 Behavior is calm, cooperative, appropriate for age. Pain: Complains of pain in generalized body aches. Neuro: Level of Consciousness is awake, alert, obeys commands, Oriented to person, place, time, situation, Appropriate for age. Neuro: Seizure activity reported prior to arrival. family reports two seizures today with an hour of each other, each lasting about a minute. Cardiovascular: Patient's skin is warm and dry. Respiratory: Airway is patent Respiratory effort is even, unlabored, Respiratory pattern is regular, symmetrical. GI: No signs and/or symptoms were reported involving the gastrointestinal system. : No signs and/or symptoms were reported regarding the genitourinary system. EENT: No signs and/or symptoms were reported regarding the EENT system. Derm: No signs and/or symptoms reported regarding the dermatologic system. Musculoskeletal: No signs and/or symptoms reported regarding the musculoskeletal system. 17:00 Reassessment: Patient appears in no apparent distress at this time. No changes from tl3 previously documented assessment. Patient and/or family updated on plan of care and expected duration. Pain level reassessed. Patient is alert, oriented x 3, equal unlabored respirations, skin warm/dry/pink. 19:16 Reassessment: Patient appears in no apparent distress at this time. No changes from tl3 previously documented assessment. Patient and/or family updated on plan of care and expected duration. Pain level reassessed. Patient is alert, oriented x 3, equal unlabored respirations, skin warm/dry/pink. Vital Signs: 13:53 BP 112 / 79; Pulse 68; Resp 18; Temp 98.5(O); Pulse Ox 100% on R/A; Weight 108.86 kg; hj Height 5 ft. 7 in. (170.18 cm); 14:12 BP 102 / 61 LA Supine (auto/lg); Pulse 64 MON; Resp 19 S; Temp 98.2(O); Pulse Ox 98% on mb4 R/A; 14:39 BP 110 / 69 LA Supine (auto/lg); Pulse 61 MON; Resp 20; Pulse Ox 96% on R/A; mb4 16:57 BP 115 / 79; Pulse 70; Resp 18; Pulse Ox 100% ; tl3 19:16 BP 103 / 62; Pulse 63; Resp 18; Pulse Ox 100% on R/A; tl3 13:53 Body Mass Index 37.59 (108.86 kg, 170.18 cm) hj Jennings Coma Score: 13:54 Eye Response: spontaneous(4). Verbal Response: oriented(5). Motor Response: obeys hj commands(6). Total: 15. ED Course: 13:46 Patient arrived in ED. mr 13:51 Triage completed. hj 13:52 Arm band placed on right wrist. hj 13:52 Patient has correct armband on for positive identification. Fall risk band placed. hj Placed in gown. Bed in low position. Call light in reach. Side rails up X 1. Side rails up X2. Adult w/ patient. 14:14 Ellen Turner, RN is Primary Nurse. tl3 14:14 Seizure precautions initiated. Warm blanket given. satellite project site monitor on. Pulse ox on. mb4 NIBP on. 14:40 No provider procedures requiring assistance completed. Inserted saline lock: 20 gauge tl3 in right forearm, using aseptic technique. Blood collected. 14:55 Alex Nguyen MD is Attending Physician. ma2 16:22 X-ray completed. Portable x-ray completed in exam room. Patient tolerated procedure la2 well. 16:22 Urine --Ancillary (enter results) Sent. tl3 16:22 Urine Dipstick--Ancillary (enter results) Sent. tl3 16:32 Chest Single View XRAY In Process Unspecified. EDMS 19:16 IV discontinued, intact, bleeding controlled, No redness/swelling at site. Pressure tl3 dressing applied. Administered Medications: 16:49 Drug: Fosphenytoin 20 mg/kg Route: IVPB; Infused Over: 1 hrs; Site: right forearm; tl3 Delivery: Primary tubing; 19:13 Follow up: IV Status: Completed infusion; IV Intake: 100ml tl3 16:50 Drug: NS 0.9% 1000 ml Route: IV; Rate: 1 bolus; Site: right forearm; Delivery: Primary tl3 tubing; 19:14 Follow up: IV Status: Completed infusion; IV Intake: 1000ml tl3 16:57 Drug: Benadryl 25 mg Route: PO; tl3 19:14 Follow up: Response: No adverse reaction tl3 Intake: 19:13 IV: 100ml; Total: 100ml. tl3 19:14 IV: 1000ml; Total: 1100ml. tl3 Outcome: 18:57 Discharge ordered by . alessandro 19:16 Discharged to home ambulatory. tl3 19:16 Condition: stable 19:16 Discharge instructions given to patient, Instructed on discharge instructions, follow up and referral plans. Demonstrated understanding of instructions, follow-up care. 19:18 Patient left the ED. tl3 Signatures: Dispatcher [employer] BILLIE Nacho Destiney mr Terrence Dudley, RN RN Elle Overton Mohammad, MD MD ma2 Ellen Turner RN RN tl3 Amanda Killian4 Corrections: (The following items were deleted from the chart) 13:54 13:53 Pulse 68bpm; Resp 18bpm; Pulse Ox 100% RA; Temp 98.5F Oral; 108.86 kg; Height 5 hj ft. 7 in.; BMI: 37.5; hj 13:55 13:50 Presenting complaint: states: shes been having seizure for a week now and hj today its gotten worse, 5-6x; shes on seizure meds; last was 20 mins ago; hj
[2018-07-11 22:06] LABS: Urine Blood NEGATIVE (NEG); Urine Glucose NEGATIVE (NEG); Urine Protein NEGATIVE (NEG); Urine Specific Gravity 1.015 (1.005-1.030); Urine pH 6.5 (5.0-7.0)
== END 2018-07-11 19:18 | disposition home or self-care (01) ==
LOC: ER 13:43
DX: G40.802 Other epilepsy, not intractable, without status epilepticus (principal); I10 Essential (primary) hypertension; I50.9 Heart failure, unspecified
CPT/HCPCS: 36415; 71045; 81003; 81015; 81025; 85025; 96365; 96366; 99284; J7030; Q2009

== ENCOUNTER 2018-07-13 09:25 | Emergency (ER) | payer MEDICAID ==
[2018-07-13] MEDS ORDERED: NA CHLORIDE 0.9% 1,000 ML ONE (09:42)
[2018-07-13] MEDS ORDERED: ONDANSETRON 4 MG/2 ML VIAL ONE ×2 (09:42→11:28)
[2018-07-13 09:46] LABS: Absolute Lymphocytes (CBC) 1.8 K/uL (0.7-4.9); Absolute Monocytes 0.5 K/uL (0.1-1.3); Absolute Neutrophil 6.6 K/uL (1.8-8.0); Basophils % 0.2 % (0-1.3); Eosinophils % 0.2 % (0-4.4); Hematocrit 44.7 % (36.0-45.0); Lymphocytes % 20.1 % (15.3-44.8); MCH 29.6 pg (27.0-35.0); MCV 86.8 fL (80-100); MPV 9.7 fL (7.6-11.3); Monocytes % 5.3 % (3.3-12.3); RBC Red Blood Cell Count 5.15 M/uL (3.86-4.86)
[2018-07-13 10:15] LABS: Albumin 3.8 g/dL (3.4-5.0); Bilirubin Direct 0.1 mg/dL (0-0.2); Bilirubin Total 0.5 mg/dL (0.2-1.0); Phenytoin (Dilantin) Level 15.6 ug/mL (10.0-20.0); Potassium 3.7 mmol/L (3.5-5.1); Protein, Total 7.7 g/dL (6.4-8.2)
[2018-07-13] MEDS ORDERED: LORazepam 2 MG/ML VIAL ONE (10:40)
[2018-07-13] MEDS ORDERED: PROMETHAZINE 25 MG/ML VIAL ONE (10:54)
[2018-07-13 10:55] LABS: Urine Blood NEGATIVE (NEG); Urine Glucose NEGATIVE (NEG); Urine Protein NEGATIVE (NEG); Urine Specific Gravity 1.015 (1.005-1.030); Urine pH 7.5 (5.0-7.0)
[2018-07-13] MEDS ORDERED: MORPHINE 4 MG/ML SYR ONE (11:28)
[2018-07-13] MEDS ORDERED: NA CHLORIDE 0.9% 100 ML IV ONE (11:28)
[2018-07-13] MEDS ORDERED: NA CHLORIDE 0.9% 250 ML ONE (11:29)
[2018-07-13 11:34] LABS: Barbiturates NEGATIVE (NEGATIVE); Benzodiazepines NEGATIVE (NEGATIVE); Cocaine NEGATIVE (NEGATIVE); METHAMPHETAM NEGATIVE (NEGATIVE); Methadone NEGATIVE (NEGATIVE); Opiates NEGATIVE (NEGATIVE); Phencyclidine NEGATIVE (NEGATIVE); THC Cannibis POSITIVE (NEGATIVE)
--- NOTE | 2018-07-13 12:34 | EKG ---
Test Date: 2018-07-13 Test Time: 09:53:25 Lead Electrical Engineer: RADHA MEASUREMENT RESULTS: Intervals: Rate: 56 AK: 158 QRSD: 88 QT: 408 QTc: 393 [place]: P: 41 AK: 158 QRS: 12 T: 34 INTERPRETIVE STATEMENTS: Sinus bradycardia with sinus arrhythmia Otherwise normal ECG Compared to ECG 02/09/2018 10:14:39 No significant changes Electronically Signed On 07-13-18 12:32:47 CDT by Iglesia Perez
--- NOTE | 2018-07-13 13:44 | EDPHYS ---
Physician Documentation [facility] Name: Kendal Contreras Age: 37 yrs Sex: Female : 1980 Arrival Date: 07/13/2018 Time: 09:27 Bed 5 Private MD: ED Physician Giovani Brooks HPI: 07/13 09:30 This 37 yrs old Female presents to ER via Unassigned with complaints of rn Seizure, Abdominal Pain. 09:30 Seizure onset: just prior to arrival. Associated injury: The patient did not suffer any rn apparent associated injury. Current symptoms: Currently, the patient is not experiencing any symptoms. The patient has experienced similar episodes in the past. EMS reports 1 or 2 seizures at home, seen here recently for same, has been having seizures for 6-7 years, per patient related to drug use in past, takes dilantin but last 2 days has been having vomiting/diarrhea/lower abd pain, unable to keep food/fluids down. . Historical: - Allergies: 09:34 No Known Allergies; sv - PMHx: 09:34 Anxiety; Asthma; HEART FAILURE; Hypertension; Migraines; Seizures; sv - PSHx: 09:34 Hysterectomy; Knee surgery; sv - Immunization history:: Adult Immunizations up to date. - Social history:: Smoking status: Patient/guardian denies using tobacco. - Family history:: not pertinent. - Ebola Screening: : No symptoms or risks identified at this time. - Hospitalizations: : No recent hospitalization is reported. ROS: 09:30 Constitutional: Negative for fever, chills, and weight loss, Eyes: Negative for injury, rn pain, redness, and discharge, Neck: Negative for injury, pain, and swelling, Cardiovascular: Negative for chest pain, palpitations, and edema, Respiratory: Negative for shortness of breath, cough, wheezing, and pleuritic chest pain, Abdomen/GI: + abd pain/nausea/vomiting/diarrhea MS/Extremity: Negative for injury and deformity, Skin: Negative for injury, rash, and discoloration, Neuro: + seizure, no focal weakness/numbness Exam: 09:30 Constitutional: This is a well developed, well nourished patient who is awake, alert, rn and in no acute distress. Head/Face: Normocephalic, atraumatic. Eyes: Pupils equal round and reactive to light, extra-ocular motions intact. Lids and lashes normal. Conjunctiva and sclera are non-icteric and not injected. Cornea within normal limits. Periorbital areas with no swelling, redness, or edema. ENT: dry MM Cardiovascular: Regular rate and rhythm with a normal S1 and S2. No gallops, murmurs, or rubs. Normal PMI, no JVD. No pulse deficits. Respiratory: Lungs have equal breath sounds bilaterally, clear to auscultation and percussion. No rales, rhonchi or wheezes noted. No increased work of breathing, no retractions or nasal flaring. Abdomen/GI: soft, non-tender, no guarding/rebound MS/ Extremity: Pulses equal, no cyanosis. Neurovascular intact. Full, normal range of motion. Equal circumference. Neuro: Awake and alert, GCS 15, oriented to person, place, time, and situation. Cranial nerves II-XII grossly intact. Motor strength 5/5 in all extremities. Sensory grossly intact. Cerebellar exam normal. 09:54 ECG was reviewed by the Attending Physician. rn Vital Signs: 09:33 BP 107 / 75; Pulse 71; Resp 18; Temp 97.5; Pulse Ox 98% ; Pain 0/10; sv 10:05 BP 114 / 66; Pulse 64; Resp 18; Pulse Ox 99% ; sv 10:54 BP 101 / 69; Pulse 72; Resp 16; Pulse Ox 100% ; sv 11:38 BP 101 / 58; Pulse 59; Resp 18; Pulse Ox 99% ; sv 12:30 BP 103 / 79; Pulse 57; Resp 16; Pulse Ox 99% ; sv 13:35 BP 102 / 61; Pulse 59; Resp 16; Pulse Ox 99% ; sv [place] Coma Score: 09:22 Eye Response: spontaneous(4). Verbal Response: oriented(5). Motor Response: obeys sv commands(6). Total: 15. MDM: 09:29 Patient medically screened. rn 13:42 Differential diagnosis: seizure, dehydration. Data reviewed: vital signs, nurses notes, newspaper journalist test result(s), EKG, and as a result, I will discharge patient. Counseling: I had a detailed discussion with the patient and/or guardian regarding: the historical points, exam findings, and any diagnostic results supporting the discharge/admit diagnosis, lab results, the need for outpatient follow up, to return to the emergency department if symptoms worsen or persist or if there are any questions or concerns that arise at home. Response to treatment: the patient's symptoms have markedly improved after treatment, and as a result, I will discharge patient. Special discussion: I discussed with the patient/guardian in detail that at this point there is no indication for admission to the hospital. It is understood, however, that if the symptoms persist or worsen the patient needs to return immediately for re-evaluation. Based on the history and exam findings, there is no indication for further emergent testing or inpatient evaluation. I discussed with the patient/guardian the need to see the neurologist for further evaluation of the symptoms. I discussed with the patient/guardian the need to see the primary care provider for further evaluation of the symptoms. ED course: Pt improved, + dehdyration, states feels better, is hungry, no current abd pain, will prescribe zofran prn, recommend hydration and pcp f/u. . 07/13 09:30 Order name: Basic Metabolic Panel; Complete Time: : rn 07/13 09:30 Order name: CBC with Diff; Complete Time: : rn 07/13 09:30 Order name: Hepatic Function; Complete Time: : rn 07/13 09:30 Order name: Lipase; Complete Time: : rn 07/13 09:30 Order name: Urine Drug Screen; Complete Time: 13:44 rn 07/13 09:30 Order name: Dilantin; Complete Time: : rn 07/13 09:30 Order name: IV Saline Lock; Complete Time: 10: rn 07/13 09:30 Order name: Labs collected and sent; Complete Time: : rn 07/13 09:30 Order name: EKG; Complete Time: :30 rn 07/13 10:24 Order name: Urine Dipstick--Ancillary (enter results) bd 07/13 09:30 Order name: Urine Dipstick-Ancillary (obtain specimen); Complete Time: : rn 07/13 09:30 Order name: Urine Test (obtain specimen); Complete Time: : rn 07/13 09:30 Order name: EKG - Nurse/Tech; Complete Time: 10: rn EC:54 Rate is 56 beats/min. Rhythm is regular. QRS [place] is Normal. TN interval is normal. QRS rn interval is normal. QT interval is normal. No Q waves. T waves are Normal. No ST changes noted. Clinical impression: Sinus bradycardia. Interpreted by me. Administered Medications: 09:40 Drug: NS 0.9% 1000 ml Route: IV; Rate: 1000 ml; Site: right antecubital; sv 12:45 Follow up: Response: No adverse reaction; IV Status: Completed infusion; IV Intake: sv 600ml 09:41 Drug: Zofran 4 mg Route: IVP; Site: right antecubital; sv 10:01 Follow up: Response: No adverse reaction sv 10:38 Drug: Ativan 2 mg Route: IVP; Site: right antecubital; hb 10:50 Follow up: Response: No adverse reaction sv 10:49 Drug: Phenergan 12.5 mg Route: IVP; Site: right antecubital; sv 11:07 Follow up: Response: No adverse reaction sv Disposition: 07/13/18 13:43 Discharged to Home. Impression: Epilepsy and recurrent seizures, Dehydration. - Condition is Stable. - Discharge Instructions: Dehydration, Adult, Seizure, Adult. - Prescriptions for Zofran ODT 4 mg Oral tablet,disintegrating - place 1 tablet by TRANSLINGUAL route every 8-10 hours As needed; 15 tablet. - Medication Reconciliation Form, Thank You Letter, Antibiotic Education, Prescription Opioid Use form. - Follow up: Private Physician; When: As needed; Reason: Recheck today's complaints, Re-evaluation by your physician. - Problem is an ongoing problem. - Symptoms have improved. Signatures: Dispatcher [employer] Laura Bihsop RN RN Letty Petersen RN RN pt Giovani Brooks MD MD rn Baxter, Heather, RN RN Corrections: (The following items were deleted from the chart) 14:19 13:43 07/13/2018 13:43 Discharged to Home. Impression: Epilepsy and recurrent seizures; pt Dehydration. Condition is Stable. Forms are Medication Reconciliation Form, Thank You Letter, Antibiotic Education, Prescription Opioid Use. Follow up: Private Physician; When: As needed; Reason: Recheck today's complaints, Re-evaluation by your physician. Problem is an ongoing problem. Symptoms have improved. rn
--- NOTE | 2018-07-13 13:44 | ER ---
Nurse's Notes [facility] Name: Kendal Contreras Age: 37 yrs Sex: Female : 1980 Arrival Date: 07/13/2018 Time: 09:27 Bed 5 Private MD: Diagnosis: Epilepsy and recurrent seizures;Dehydration Presentation: 07/13 09:21 Presenting complaint: EMS states: pt was driving and felt like she was going to have a sv seizure and pulled over. EMS was called by bystander. Pt was post ictal and had 2 seizures in the truck lasting about 30-45 seconds, Ativan 2mg IVP given \\T\\ 0912. Pt is A\\T\\O x and drowsy. HR-90 BP 130/88 99% RA. Transition of care: patient was not received from another setting of care. Onset of symptoms was July 13, 2018. Care prior to arrival: IV initiated. 20 GA, in the right antecubital area, Glucose check: 108. 09:21 Method Of Arrival: EMS: [facility] 09:21 Acuity: CHARLEY 3 sv 09:23 Presenting complaint: Patient states: that she's been having n/v/d/abd pain at home and sv has been unable to keep her Dilantin down. Risk Assessment: Do you want to hurt yourself or someone else? Patient reports no desire to harm self or others. Initial Sepsis Screen: Does the patient meet any 2 criteria? No. Patient's initial sepsis screen is negative. Does the patient have a suspected source of infection? No. Patient's initial sepsis screen is negative. Triage Assessment: 09:22 General: Appears in no apparent distress. comfortable, obese, well developed, Behavior sv is calm, cooperative, appropriate for age, drowsy. Pain: Denies pain. EENT: No signs and/or symptoms were reported regarding the EENT system. Neuro: Level of Consciousness is awake, alert, obeys commands, Oriented to person, place, time, situation, Moves all extremities. Full function Gait is steady, Speech is normal. Respiratory: Respiratory effort is even, unlabored, Respiratory pattern is regular, symmetrical. Derm: Skin is pink, warm \\T\\ dry. Musculoskeletal: Range of motion: intact in all extremities. Historical: - Allergies: 09:34 No Known Allergies; sv - PMHx: 09:34 Anxiety; Asthma; HEART FAILURE; Hypertension; Migraines; Seizures; sv - PSHx: 09:34 Hysterectomy; Knee surgery; sv - Immunization history:: Adult Immunizations up to date. - Social history:: Smoking status: Patient/guardian denies using tobacco. - Family history:: not pertinent. - Ebola Screening: : No symptoms or risks identified at this time. - Hospitalizations: : No recent hospitalization is reported. Screenin:50 Abuse screen: Denies threats or abuse. Denies injuries from another. Nutritional sv screening: No deficits noted. Tuberculosis screening: No symptoms or risk factors identified. Fall Risk None identified. Assessment: 09:41 Reassessment: Patient appears in no apparent distress at this time. No changes from sv previously documented assessment. Patient and/or family updated on plan of care and expected duration. Pain level reassessed. Patient is alert, oriented x 3, equal unlabored respirations, skin warm/dry/pink. 10:31 Reassessment: Patient appears in no apparent distress at this time. No changes from sv previously documented assessment. Patient and/or family updated on plan of care and expected duration. Pain level reassessed. Patient is alert, oriented x 3, equal unlabored respirations, skin warm/dry/pink. 10:48 Reassessment: Patient appears in no apparent distress at this time. Patient and/or sv family updated on plan of care and expected duration. Pain level reassessed. Pt asking "Where am I at? What happened?" Informed pt of what brought her here to the hospital and that she is safe. Pt c/o nausea and being hungry. Informed Dr Brooks, medication ordered. 12:45 Reassessment: Patient appears in no apparent distress at this time. Pt appears to be sv resting with eyes closed. Respirations even and unlabored. 13:55 Reassessment: Patient appears in no apparent distress at this time. Patient and/or sv family updated on plan of care and expected duration. Pain level reassessed. Patient is alert, oriented x 3, equal unlabored respirations, skin warm/dry/pink. Pt informed that she is ok to be discharge but will need a ride home. Pt stated that she would call someone to come and get her. Informed pt that she will stay in the room until her ride gets here. Pt said ok and went back to sleep. Vital Signs: 09:33 BP 107 / 75; Pulse 71; Resp 18; Temp 97.5; Pulse Ox 98% ; Pain 0/10; sv 10:05 BP 114 / 66; Pulse 64; Resp 18; Pulse Ox 99% ; sv 10:54 BP 101 / 69; Pulse 72; Resp 16; Pulse Ox 100% ; sv 11:38 BP 101 / 58; Pulse 59; Resp 18; Pulse Ox 99% ; sv 12:30 BP 103 / 79; Pulse 57; Resp 16; Pulse Ox 99% ; sv 13:35 BP 102 / 61; Pulse 59; Resp 16; Pulse Ox 99% ; sv Chester Coma Score: 09:22 Eye Response: spontaneous(4). Verbal Response: oriented(5). Motor Response: obeys sv commands(6). Total: 15. ED Course: 09:27 Patient arrived in ED. aa5 09:27 Laura Nogueira, RN is Primary Nurse. sv 09:29 Giovani Brooks MD is Attending Physician. rn 09:32 Triage completed. sv 09:33 Arm band placed on. sv 09:50 Patient has correct armband on for positive identification. Placed in gown. Bed in low sv position. Call light in reach. Side rails up X2. Seizure precautions initiated. traffic monitor specialist on. Pulse ox on. NIBP on. Door closed. Warm blanket given. Head of bed elevated. 09:50 Initial lab(s) drawn, by me, sent to lab. Inserted saline lock: 20 gauge in right sv antecubital area, using aseptic technique. Blood collected. Flushed right antecubital with 5 ml normal saline. 09:55 Strep swab sent to lab. sv 10:07 EKG done, by forensic technician. reviewed by Giovani Brooks MD. at1 10:28 Urine collected: clean catch specimen, clear. sv 13:30 IV discontinued, intact, bleeding controlled, No redness/swelling at site. Pressure sv dressing applied. 14:15 No provider procedures requiring assistance completed. sv Administered Medications: 09:40 Drug: NS 0.9% 1000 ml Route: IV; Rate: 1000 ml; Site: right antecubital; sv 12:45 Follow up: Response: No adverse reaction; IV Status: Completed infusion; IV Intake: sv 600ml 09:41 Drug: Zofran 4 mg Route: IVP; Site: right antecubital; sv 10:01 Follow up: Response: No adverse reaction sv 10:38 Drug: Ativan 2 mg Route: IVP; Site: right antecubital; hb 10:50 Follow up: Response: No adverse reaction sv 10:49 Drug: Phenergan 12.5 mg Route: IVP; Site: right antecubital; sv 11:07 Follow up: Response: No adverse reaction sv Intake: 12:45 IV: 600ml; Total: 600ml. sv Output: 10:28 Urine: 200ml (Voided); Total: 200ml. sv Outcome: 13:43 Discharge ordered by . rn 14:19 Patient left the ED. pt Signatures: Laura Nogueira RN RN Letty Foster RN RN pt Giovani Brooks MD MD rn Calderon, Audri, RN RN aa5 Merary Bain, asphalt tile floor layer EKG Tat1 Jessica Killian RN RN hb
== END 2018-07-13 14:19 | disposition home or self-care (01) ==
LOC: ER 09:25
DX: E86.0 Dehydration (principal); I10 Essential (primary) hypertension
CPT/HCPCS: 36415; 80048; 80076; 80185; 80307; 81003; 83690; 85025; 93005; 96361; 96374; 96375; 99285; J2405; J2550; J7030

== ENCOUNTER 2018-08-15 04:14 | Emergency (ER) | payer MEDICAID ==
[2018-08-15 04:51] LABS: Absolute Lymphocytes (CBC) 1.5 K/uL (0.7-4.9); Absolute Monocytes 0.4 K/uL (0.1-1.3); Basophils % 0.3 % (0-1.3); Eosinophils % 0.1 % (0-4.4); Hematocrit 40.2 % (36.0-45.0); MCH 29.7 pg (27.0-35.0); MCV 88.3 fL (80-100); MPV 9.9 fL (7.6-11.3); Monocytes % 4.9 % (3.3-12.3); RBC Red Blood Cell Count 4.55 M/uL (3.86-4.86)
[2018-08-15 04:54] LABS: Protime INR 1.01
[2018-08-15 05:15] LABS: ALT/SGPT 19 U/L (12-78); AST/SGOT 16 U/L (15-37); Albumin 3.2 g/dL (3.4-5.0); Alkaline Phosphatase 87 U/L (45-117); BUN Blood Urea Nitrogen 12 mg/dL (7-18); Bicarbonate 23 mmol/L (21-32); Bilirubin Direct 0.1 mg/dL (0-0.2); Bilirubin Total 0.4 mg/dL (0.2-1.0); Glucose Level 109 mg/dL (74-106); Potassium 3.6 mmol/L (3.5-5.1); Protein, Total 6.5 g/dL (6.4-8.2); Sodium Level 142 mmol/L (136-145)
--- NOTE | 2018-08-15 05:48 | EKG ---
Test Date: 2018-08-15 Test Time: 05:05:33 Machine Helper: MADHURI MEASUREMENT RESULTS: Intervals: Rate: 74 WV: 160 QRSD: 92 QT: 394 QTc: 437 [place]: P: 68 WV: 160 QRS: 11 T: 43 INTERPRETIVE STATEMENTS: Normal sinus rhythm with sinus arrhythmia Normal ECG Compared to ECG 07/13/2018 09:53:25 Sinus bradycardia no longer present Electronically Signed On 08-15-18 05:47:59 YARN WASHER by Vitaliy Judge
[2018-08-15 06:13] LABS: Barbiturates NEGATIVE (NEGATIVE); Benzodiazepines NEGATIVE (NEGATIVE); Cocaine POSITIVE (NEGATIVE); METHAMPHETAM NEGATIVE (NEGATIVE); Methadone NEGATIVE (NEGATIVE); Opiates NEGATIVE (NEGATIVE); Phencyclidine NEGATIVE (NEGATIVE); THC Cannibis POSITIVE (NEGATIVE)
[2018-08-15 06:13] LABS: Urine Blood NEGATIVE (NEG); Urine Glucose NEGATIVE (NEG); Urine Protein NEGATIVE (NEG); Urine Specific Gravity 1.015 (1.005-1.030); Urine pH 6.5 (5.0-7.0)
--- NOTE | 2018-08-15 09:57 | ER ---
Nurse's Notes [facility] Name: Kendal Contreras Age: 37 yrs Sex: Female : 1980 Arrival Date: 08/15/2018 Time: 04:17 Bed 6 Private MD: Diagnosis: Prescription drug overdose;Cannabis abuse;Cocaine abuse Presentation: 08/15 04:25 Presenting complaint: EMS states: pt took an overdose of her trazodone while she was bb arguing with her kaushal approx 15 minutes prior to arrival pt also states she was drinking alcohol and smoking marijuana. Transition of care: patient was not received from another setting of care. Onset of symptoms was August 15, 2018. Risk Assessment: Do you want to hurt yourself or someone else? Patient reports no desire to harm self or others. Initial Sepsis Screen: Does the patient meet any 2 criteria? No. Patient's initial sepsis screen is negative. Does the patient have a suspected source of infection? No. Patient's initial sepsis screen is negative. Care prior to arrival: None. 04:25 Method Of Arrival: EMS: [facility] bb 04:25 Acuity: CHARLEY 2 bb 04:34 Note Poison control notified symptomatic support recommended may need magnesium if QT bb exceeds 500 milliseconds. CONFLICT RESOLUTION PROFESSIONAL: 04:28 LMP N/A - Hysterectomy bb Historical: - Allergies: 04:28 No Known Allergies; bb - Home Meds: 04:28 Albuterol Inhl [Active]; Dilantin Oral [Active]; Hydrochlorothiazide Oral [Active]; bb Lasix Oral [Active]; Topamax Oral [Active]; Trazodone Oral [Active]; Zyrtec Oral [Active]; - PMHx: 04:28 Anxiety; Asthma; HEART FAILURE; Hypertension; Migraines; Seizures; bb - PSHx: 04:28 Hysterectomy; Knee surgery; bb - Immunization history:: Adult Immunizations unknown. - Social history:: Smoking status: Patient uses tobacco products, smokes one-half pack cigarettes per day, Patient uses alcohol, occasionally. street drugs, marijuana. - Ebola Screening: : No symptoms or risks identified at this time. Screenin:22 Abuse screen: Denies threats or abuse. Nutritional screening: No deficits noted. ea Tuberculosis screening: No symptoms or risk factors identified. Fall Risk Assessment: 04:35 General: Appears uncomfortable. Pain: Denies pain. Neuro: Level of Consciousness is ea obeys commands, groggy. Oriented to person, place, time, situation. Cardiovascular: Heart tones S1 S2 present Patient's skin is warm and dry. Respiratory: Airway is patent Respiratory effort is even, unlabored, Respiratory pattern is regular, symmetrical, Breath sounds are clear bilaterally. GI: Abdomen is non-distended, obese, Bowel sounds present X 4 quads. Derm: Skin is clammy, Skin is normal, Skin temperature is warm. 05:50 Reassessment: Patient and/or family updated on plan of care and expected duration. Pain ea level reassessed. Patient is alert, oriented x 3, equal unlabored respirations, skin warm/dry/pink. family at bedside. 06:14 Reassessment: Patient and/or family updated on plan of care and expected duration. Pain ea level reassessed. Patient is alert, oriented x 3, equal unlabored respirations, skin warm/dry/pink. [place] from poison control contacted reported pt must be monitored for 6 hours. 07:11 Reassessment: Pt to bathroom via wheelchair with nurse. Assisted back to bed. Bed hb locked in low position, call light within reach. 08:18 Reassessment: Patient appears in no apparent distress at this time. Patient and/or hb family updated on plan of care and expected duration. Pain level reassessed. Patient is alert, oriented x 3, equal unlabored respirations, skin warm/dry/pink. 09:00 Reassessment: Patient appears in no apparent distress at this time. No changes from previously documented assessment. Patient and/or family updated on plan of care and expected duration. Pain level reassessed. Patient is alert, oriented x 3, equal unlabored respirations, skin warm/dry/pink. 09:41 Reassessment: at bedside, insisting pt be dishcarged. MARICRUZ Rosas notified. 09:42 Reassessment: MARICRUZ Rosas at bedside. Vital Signs: 04:28 BP 104 / 56; Pulse 79; Resp 18 S; Temp 99.1(A); Pulse Ox 97% on R/A; Weight 108.86 kg bb (R); Height 5 ft. 7 in. (170.18 cm) (R); Pain 0/10; 05:15 BP 105 / 65; Pulse 70; Resp 18; Pulse Ox 98% ; ea 06:00 BP 119 / 52; Pulse 71; Resp 18; Pulse Ox 98% ; ea 07:15 BP 98 / 58; Pulse 66; Resp 16; Pulse Ox 100% on R/A; Pain 0/10; hb 08:18 BP 99 / 53; Pulse 67; Resp 15; Pulse Ox 100% on R/A; hb 09:39 BP 96 / 56; Pulse 66; Resp 17; Pulse Ox 98% on R/A; hb 04:28 Body Mass Index 37.59 (108.86 kg, 170.18 cm) bb ED Course: 04:17 Patient arrived in ED. al2 04:27 Triage completed. bb 04:28 Arm band placed on Patient placed in an exam room, on a stretcher, on director of cardiac rehabilitation, bb on pulse oximetry. 04:35 Patient has correct armband on for positive identification. Bed in low position. Call ea light in reach. Side rails up X2. 04:38 Radha Fair, RN is Primary Nurse. ea 04:40 Inserted saline lock: 18 gauge in right antecubital area, using aseptic technique. ea Blood collected. 06:01 Ralph Andrews NP is PHCP. pm1 06:01 Jericho James MD is Attending Physician. pm1 07:08 Report given to Ramu ARANGO. ea 10:01 No provider procedures requiring assistance completed. IV discontinued, intact, hb bleeding controlled, No redness/swelling at site. Pressure dressing applied. Administered Medications: No medications were administered Outcome: 10:01 AMA AMA form signed hb 10:01 Condition: stable 10:01 Instructed on follow up and referral plans. Demonstrated understanding of instructions. 10:01 Patient left the ED. hb Signatures: Niurka Gordon RN RN bb Ralph Andrews, MARICRUZ ESCROW ASSISTANT pm1 Jessica Killian RN RN hb Antunez, Elena, RN RN ea Love, Angelica al2
--- NOTE | 2018-08-15 09:57 | EDPHYS ---
Physician Documentation [facility] Name: Kendal Contreras Age: 37 yrs Sex: Female : 1980 Arrival Date: 08/15/2018 Time: 04:17 Bed 6 Private MD: ED Physician Jericho James HPI: 08/15 06:10 This 37 yrs old Female presents to ER via EMS with complaints of Accidental pm1 Overdose. 06:10 The patient presents to the emergency department after a known overdose, that was pm1 accidental. Context: Method: the patient has a confirmed or suspected ingestion, Trazadone, Time: 1.5 hour ago, the OD/poisoning occurred at at home, and was witnessed by family, Psychiatric history: the patient has a known psychiatric disorder, Anxiety, insomnia. Associated signs and symptoms: Pertinent negatives: depression, diarrhea, dizziness, nausea, palpitations, shortness of breath, visual hallucinations, vomiting. The patient has not recently seen a physician. Patient reports that she was partying with her using marijuana and alcohol. Patient got in argument with him and decided to dare him to allow her to take additional Trazodone. She thought that he would stop her but he didn't and she started to worry and presented to the ER . VETERANS ADVISER: 04:28 LMP N/A - Hysterectomy bb Historical: - Allergies: 04:28 No Known Allergies; bb - Home Meds: 04:28 Albuterol Inhl [Active]; Dilantin Oral [Active]; Hydrochlorothiazide Oral [Active]; bb Lasix Oral [Active]; Topamax Oral [Active]; Trazodone Oral [Active]; Zyrtec Oral [Active]; - PMHx: 04:28 Anxiety; Asthma; HEART FAILURE; Hypertension; Migraines; Seizures; bb - PSHx: 04:28 Hysterectomy; Knee surgery; bb - Immunization history:: Adult Immunizations unknown. - Social history:: Smoking status: Patient uses tobacco products, smokes one-half pack cigarettes per day, Patient uses alcohol, occasionally. street drugs, marijuana. - Ebola Screening: : No symptoms or risks identified at this time. ROS: 06:10 Constitutional: Negative for fever, chills, and weight loss, Eyes: Negative for injury, pm1 pain, redness, and discharge, ENT: Negative for injury, pain, and discharge, Neck: Negative for injury, pain, and swelling, Cardiovascular: Negative for chest pain, palpitations, and edema, Respiratory: Negative for shortness of breath, cough, wheezing, and pleuritic chest pain, Abdomen/GI: Negative for abdominal pain, nausea, vomiting, diarrhea, and constipation, Back: Negative for injury and pain, : Negative for injury, bleeding, discharge, and swelling, MS/Extremity: Negative for injury and deformity, Skin: Negative for injury, rash, and discoloration, Neuro: Negative for headache, weakness, numbness, tingling, and seizure. Exam: 06:10 Constitutional: This is a well developed, well nourished patient who is awake, alert, pm1 and in no acute distress. Head/Face: Normocephalic, atraumatic. Eyes: Pupils equal round and reactive to light, extra-ocular motions intact. Lids and lashes normal. Conjunctiva and sclera are non-icteric and not injected. Cornea within normal limits. Periorbital areas with no swelling, redness, or edema. ENT: Nares patent. No nasal discharge, no septal abnormalities noted. Tympanic membranes are normal and external auditory canals are clear. Oropharynx with no redness, swelling, or masses, exudates, or evidence of obstruction, uvula midline. Mucous membranes moist. Neck: Trachea midline, no thyromegaly or masses palpated, and no cervical lymphadenopathy. Supple, full range of motion without nuchal rigidity, or vertebral point tenderness. No Meningismus. Chest/axilla: Normal chest wall appearance and motion. Nontender with no deformity. No lesions are appreciated. Cardiovascular: Regular rate and rhythm with a normal S1 and S2. No gallops, murmurs, or rubs. Normal PMI, no JVD. No pulse deficits. Respiratory: Lungs have equal breath sounds bilaterally, clear to auscultation and percussion. No rales, rhonchi or wheezes noted. No increased work of breathing, no retractions or nasal flaring. Abdomen/GI: Soft, non-tender, with normal bowel sounds. No distension or tympany. No guarding or rebound. No evidence of tenderness throughout. Back: No spinal tenderness. No costovertebral tenderness. Full range of motion. Skin: Warm, dry with normal turgor. Normal color with no rashes, no lesions, and no evidence of cellulitis. MS/ Extremity: Pulses equal, no cyanosis. Neurovascular intact. Full, normal range of motion. 06:10 Neuro: Orientation: is normal, Mentation: is normal, Motor: is normal, moves all fours, Sensation: is normal, no obvious gross deficits. 06:10 Psych: Behavior/mood is pleasant, cooperative, Affect is calm, Oriented to person, place, time, Patient has no thoughts/intents to harm self or others. Judgement / Insight is normal. Delusions/hallucinations are not present. Vital Signs: 04:28 BP 104 / 56; Pulse 79; Resp 18 S; Temp 99.1(A); Pulse Ox 97% on R/A; Weight 108.86 kg bb (R); Height 5 ft. 7 in. (170.18 cm) (R); Pain 0/10; 05:15 BP 105 / 65; Pulse 70; Resp 18; Pulse Ox 98% ; ea 06:00 BP 119 / 52; Pulse 71; Resp 18; Pulse Ox 98% ; ea 07:15 BP 98 / 58; Pulse 66; Resp 16; Pulse Ox 100% on R/A; Pain 0/10; hb 08:18 BP 99 / 53; Pulse 67; Resp 15; Pulse Ox 100% on R/A; hb 09:39 BP 96 / 56; Pulse 66; Resp 17; Pulse Ox 98% on R/A; hb 04:28 Body Mass Index 37.59 (108.86 kg, 170.18 cm) bb MDM: 06:10 ED course: Patient denies any suicidal or homicidal ideation. Patient was in an pm1 argument with her while partying with her with marijuana. She dared him to allow her to take more of her Trazodone and she thought that he would stop her. He did not and she stared to get scared that she took 10 total pills and came to the ER. She vomited pill fragments in the ER on arrival. 06:17 Patient medically screened. pm1 09:52 Refusal of service: The patient/guardian displays adequate decision making capability pm1 and despite a detailed discussion of alternatives, benefits, risks, and consequences refuses: Patient does not want to stay for recommended time frame of 6 hours by poison control. Informed patient that I wanted to continue cardiac monitoring and then get a repeat ECG. Patient does not want to wait because she wants to leave with her due to a family emergency. She denies homicidal or suicidal ideation and her family is at bedside and they support her decision to go home. 09:52 Data reviewed: vital signs. pm1 08/15 04:39 Order name: Acetaminophen 08/15 04:39 Order name: BMP 08/15 04:39 Order name: CBC with Diff; Complete Time: 06:01 08/15 04:39 Order name: Ethanol; Complete Time: 06:01 08/15 04:39 Order name: Hepatic Function; Complete Time: 06:01 08/15 04:39 Order name: Protime (+inr); Complete Time: 06:01 08/15 04:39 Order name: Ptt, Activated; Complete Time: 06:01 08/15 04:39 Order name: Salicylate; Complete Time: 06:01 08/15 04:39 Order name: Urine Drug Screen; Complete Time: 06:39 08/15 04:39 Order name: EKG; Complete Time: 04:40 08/15 04:39 Order name: EKG - Nurse/Tech; Complete Time: 06:01 08/15 04:40 Order name: Acetaminophen Level; Complete Time: 06:01 EDMS 08/15 04:40 Order name: Basic Metabolic Panel; Complete Time: 06:01 EDNJ 08/15 04:51 Order name: Urine Dipstick--Ancillary (enter results); Complete Time: 06:39 08/15 04:39 Order name: IV Saline Lock; Complete Time: 04:54 08/15 04:39 Order name: Labs collected and sent; Complete Time: 04:54 08/15 04:39 Order name: O2 Per Protocol; Complete Time: 06:01 08/15 04:39 Order name: O2 Sat Monitoring; Complete Time: 06:01 08/15 04:39 Order name: Urine Dipstick-Ancillary (obtain specimen); Complete Time: 04:54 ea Administered Medications: No medications were administered Disposition: 08/15/18 09:56 Patient has left against medical advice. Impression: Prescription drug overdose, Cannabis abuse, Cocaine abuse. - Patients states they are going to Home. - Condition is Stable. - Discharge Instructions: Stimulant Use Disorder-Cocaine, Cannabis Use Disorder, Drug Overdose. Follow up: Emergency Department; When: As needed; Reason: Worsening of condition, Recheck today's complaints, Continuance of care, Re-evaluation by your physician. Follow up: Private Physician; When: Upon discharge from the Emergency Department; Reason: Recheck today's complaints, Continuance of care, Re-evaluation by your physician. - Problem is new. - Symptoms have improved. Addendum: 08/22/2018 20:03 Co-signature as Attending Physician, Jericho combs Signatures: Dispatcher [employer] EDMS Jericho James MD MD pkl Ballard, Brenda, RN RN bb Ralph Andrews, CARPORT ERECTOR CARPORT ERECTOR pm1 Jessica Killian RN RN hb Antunez, Elena, RN RN ea Corrections: (The following items were deleted from the chart) 08/15 09:57 09:56 08/15/2018 09:56 Patients has left against medical advice. Impression: pm1 Prescription drug overdose. Patient states they are going to Home. Condition is Stable. Follow up: Emergency Department; When: As needed; Reason: Worsening of condition, Recheck today's complaints, Continuance of care, Re-evaluation by your physician. Follow up: Private Physician; When: Upon discharge from the Emergency Department; Reason: Recheck today's complaints, Continuance of care, Re-evaluation by your physician. Problem is new. Symptoms have improved. pm1 10:01 09:57 08/15/2018 09:56 Patients has left against medical advice. Impression: hb Prescription drug overdose; Cannabis abuse; Cocaine abuse. Patient states they are going to Home. Condition is Stable. Follow up: Emergency Department; When: As needed; Reason: Worsening of condition, Recheck today's complaints, Continuance of care, Re-evaluation by your physician. Follow up: Private Physician; When: Upon discharge from the Emergency Department; Reason: Recheck today's complaints, Continuance of care, Re-evaluation by your physician. Problem is new. Symptoms have improved. pm1
== END 2018-08-15 10:01 | disposition left against medical advice (07) ==
LOC: ER 04:14
DX: T50.901A Poisoning by unspecified drugs, medicaments and biological substances, accidental (unintentional), initial encounter (principal); Y92.009 Unspecified place in unspecified non-institutional (private) residence as the place of occurrence of the external cause; F14.10 Cocaine abuse, uncomplicated; F12.10 Cannabis abuse, uncomplicated; F41.9 Anxiety disorder, unspecified; G47.00 Insomnia, unspecified; I11.0 Hypertensive heart disease with heart failure; I50.9 Heart failure, unspecified; J45.909 Unspecified asthma, uncomplicated; F17.210 Nicotine dependence, cigarettes, uncomplicated; Z79.899 Other long term (current) drug therapy
CPT/HCPCS: 36415; 80048; 80076; 80307; 80320; 80329; 81003; 85025; 85610; 85730; 93005; 99284

== ENCOUNTER 2018-09-29 09:39 | Emergency (ER) | payer MEDICAID ==
--- NOTE | 2018-09-29 11:11 | RAD REPORT ---
EXAM DESCRIPTION: RAD - Chest Pa And Lat (2 Views) - 09/29/2018 11:04 am CLINICAL HISTORY: Congestion;Cough Chest pain. COMPARISON: Chest Single View dated 07/11/2018; Chest Single View dated 02/09/2018; Chest Pa And Lat (2 Views) dated 04/30/2017; Chest Single View dated 04/12/2017 FINDINGS: The lungs are emphysematous but clear. The heart is normal in size. No displaced fractures . Mild dextroscoliosis of the thoracic spine. IMPRESSION: No acute or concerning finding suspected.
[2018-09-29] MEDS ORDERED: ONDANSETRON 4 MG (ODT) TAB ONE (11:19)
--- NOTE | 2018-09-29 11:59 | ER ---
Nurse's Notes [facility] Name: Kendal Contreras Age: 37 yrs Sex: Female : 1980 Arrival Date: 09/29/2018 Time: 09:44 Bed 19 Private MD: out of town, doctor Diagnosis: Bronchitis, not specified as acute or chronic Presentation: 09/29 09:54 Presenting complaint: Patient states: Cough and congestion with chills for 2 days. ss Treating at home with OTC medications. Patient states "With this cough I can't smoke nothing, so everything hurts. I use marijuana to treat my chronic leg pain.". Transition of care: patient was not received from another setting of care. Onset of symptoms was September 27, 2018. Risk Assessment: Do you want to hurt yourself or someone else? Patient reports no desire to harm self or others. Initial Sepsis Screen: Does the patient meet any 2 criteria? No. Patient's initial sepsis screen is negative. Does the patient have a suspected source of infection? No. Patient's initial sepsis screen is negative. Note Patient using cell phone with no difficulty in triage. Care prior to arrival: None. 09:54 Method Of Arrival: Ambulatory ss 09:54 Acuity: CHARLEY 4 ss Triage Assessment: 09:56 General: Appears in no apparent distress. comfortable, Behavior is calm, cooperative, ss appropriate for age. Pain: Complains of pain in left subscapular area and right subscapular area. Neuro: Level of Consciousness is awake, alert, obeys commands, Oriented to person, place, time, situation, Appropriate for age. Respiratory: Reports cough that is Airway is patent Respiratory effort is even, unlabored, Respiratory pattern is regular, symmetrical, Breath sounds are clear bilaterally. Derm: Skin is intact, is healthy with good turgor, Skin is pink, warm \\T\\ dry. normal. 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 - Social history:: Smoking status: Patient/guardian denies using tobacco, Patient uses street drugs, marijuana. - Ebola Screening: : Patient negative for fever greater than or equal to 101.5 degrees Fahrenheit, and additional compatible Ebola Virus Disease symptoms Patient denies exposure to infectious person Patient denies travel to an Ebola-affected area in the 21 days before illness onset No symptoms or risks identified at this time. Screenin:59 Abuse screen: Denies threats or abuse. Denies injuries from another. Nutritional sv screening: No deficits noted. Tuberculosis screening: No symptoms or risk factors identified. Fall Risk None identified. Assessment: 10:30 General: Appears in no apparent distress. uncomfortable, Behavior is calm, cooperative, sv appropriate for age. Neuro: Level of Consciousness is awake, alert, obeys commands, Oriented to person, place, time, situation, Moves all extremities. Full function Gait is steady, Speech is normal. Cardiovascular: Patient's skin is warm and dry. Respiratory: Reports cough that is non-productive, persistent Respiratory effort is even, unlabored, Respiratory pattern is regular, symmetrical. Derm: Skin is pink, warm \\T\\ dry. 11:11 Reassessment: Patient appears in no apparent distress at this time. Patient and/or sv family updated on plan of care and expected duration. Pain level reassessed. Patient is alert, oriented x 3, equal unlabored respirations, skin warm/dry/pink. Patient states symptoms have improved. 12:15 Reassessment: Patient appears in no apparent distress at this time. Patient and/or sv family updated on plan of care and expected duration. Pain level reassessed. Patient is alert, oriented x 3, equal unlabored respirations, skin warm/dry/pink. Patient states symptoms have improved. Vital Signs: 09:57 BP 105 / 75; Pulse 69; Resp 19; Temp 98.2; Pulse Ox 98% on R/A; Weight 108.86 kg; ss Height 5 ft. 7 in. (170.18 cm); 09:57 Body Mass Index 37.59 (108.86 kg, 170.18 cm) ss ED Course: 09:44 Patient arrived in ED. sb2 09:44 out of town, doctor is Private Physician. sb2 09:55 Triage completed. ss 09:57 Arm band placed on left wrist. Patient placed in an exam room. ss 09:59 Laura Nogueira RN is Primary Nurse. sv 09:59 Patient has correct armband on for positive identification. Bed in low position. Call sv light in reach. Door closed. Head of bed elevated. 10:03 Jorje Laura MD is Attending Physician. [facility] 10:03 Lise Guth[facility]C [facility] kb 10:17 Awaiting for x-ray. sv 10:22 Flu and/or RSV swab sent to lab. Strep swab sent to lab. dh3 11:03 Patient moved to radiology via wheelchair. jb2 11:03 X-ray completed. Patient tolerated procedure well. jb2 11:05 Chest Pa And Lat (2 Views) XRAY In Process Unspecified. EDMS 12:19 No provider procedures requiring assistance completed. Patient did not have IV access sv during this emergency room visit. Administered Medications: 11:11 Drug: Zofran 4 mg Route: PO; sv 12:20 Follow up: Response: No adverse reaction sv Outcome: 11:59 Discharge ordered by MD. kb 12:19 Discharged to home ambulatory. sv 12:19 Condition: stable 12:19 Discharge instructions given to patient, Instructed on discharge instructions, follow up and referral plans. medication usage, Demonstrated understanding of instructions, follow-up care, medications, Prescriptions given X 1. 12:20 Patient left the ED. sv Signatures: Dispatcher [employer] EDMS Lise Guthrie FNP-C FNP-Laura Nunez, RN RN Jorje Najera MD MD cha Buechter, Jesse jb2 Shaniqua Moreno RN RN Dariana Valverde 3 Roro Asif 2 Corrections: (The following items were deleted from the chart) 09:58 09:54 Presenting complaint: Patient states: Cough and congestion with chills for 2 ss days. Treating at home with OTC medications ss
--- NOTE | 2018-09-29 12:00 | EDPHYS ---
Physician Documentation [facility] Name: Kendal Contreras Age: 37 yrs Sex: Female : 1980 Arrival Date: 09/29/2018 Time: 09:44 Bed 19 Private MD: out of town, doctor ED Physician Jorje Laura HPI: 09/29 10:31 This 37 yrs old Female presents to ER via Ambulatory with complaints of Cough, kb Congestion. 10:31 The patient or guardian reports cough, that is intermittent, described as moderate, kb with no sputum, flu symptoms, low-grade fever, myalgias. Onset: The symptoms/episode began/occurred 3 day(s) ago. Severity of symptoms: At their worst the symptoms were moderate, in the emergency department the symptoms are unchanged. Modifying factors: The symptoms are alleviated by nothing, the symptoms are aggravated by nothing. Associated signs and symptoms: Pertinent positives: fever, rhinorrhea, sore throat, vomiting, Pertinent negatives: chest pain, diarrhea, ear ache, nausea. The patient has experienced similar episodes in the past, a few times. The patient has not recently seen a physician. Pt reports cough, congestion, fever and right lung pain since MILE. States "I wanted to go [employer] so I took 2 clindamycin I had at home, some home remedies and other cold medicine. I felt better after that, but now I feel worse." Has been using neb treatments at home without relief.. 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 - Social history:: Smoking status: Patient/guardian denies using tobacco, Patient uses street drugs, marijuana. - Ebola Screening: : Patient negative for fever greater than or equal to 101.5 degrees Fahrenheit, and additional compatible Ebola Virus Disease symptoms Patient denies exposure to infectious person Patient denies travel to an Ebola-affected area in the 21 days before illness onset No symptoms or risks identified at this time. ROS: 10:49 Cardiovascular: Negative for chest pain, palpitations, and edema, Abdomen/GI: Negative kb for abdominal pain, nausea, vomiting, diarrhea, and constipation, Back: Negative for injury and pain, : Negative for injury, bleeding, discharge, and swelling, MS/Extremity: Negative for injury and deformity, Skin: Negative for injury, rash, and discoloration, Neuro: Negative for headache, weakness, numbness, tingling, and seizure. 10:49 Constitutional: Positive for body aches, chills, fever, malaise, Negative for fatigue, poor PO intake, weight loss. 10:49 ENT: Positive for rhinorrhea. 10:49 Respiratory: Positive for cough, Negative for dyspnea on exertion, hemoptysis, orthopnea, pleurisy, shortness of breath, sputum production, wheezing. Exam: 10:50 Constitutional: This is a well developed, well nourished patient who is awake, alert, kb and in no acute distress. Head/Face: Normocephalic, atraumatic. ENT: Nares patent. No nasal discharge, no septal abnormalities noted. Tympanic membranes are normal and external auditory canals are clear. Oropharynx with no redness, swelling, or masses, exudates, or evidence of obstruction, uvula midline. Mucous membranes moist. Neck: Trachea midline, no thyromegaly or masses palpated, and no cervical lymphadenopathy. Supple, full range of motion without nuchal rigidity, or vertebral point tenderness. No Meningismus. Chest/axilla: Normal chest wall appearance and motion. Nontender with no deformity. No lesions are appreciated. Cardiovascular: Regular rate and rhythm with a normal S1 and S2. No gallops, murmurs, or rubs. Normal PMI, no JVD. No pulse deficits. Respiratory: Lungs have equal breath sounds bilaterally, clear to auscultation and percussion. No rales, rhonchi or wheezes noted. No increased work of breathing, no retractions or nasal flaring. Abdomen/GI: Soft, non-tender, with normal bowel sounds. No distension or tympany. No guarding or rebound. No evidence of tenderness throughout. Skin: Warm, dry with normal turgor. Normal color with no rashes, no lesions, and no evidence of cellulitis. MS/ Extremity: Pulses equal, no cyanosis. Neurovascular intact. Full, normal range of motion. Neuro: Awake and alert, GCS 15, oriented to person, place, time, and situation. Cranial nerves II-XII grossly intact. Motor strength 5/5 in all extremities. Sensory grossly intact. Cerebellar exam normal. Normal gait. Vital Signs: 09:57 BP 105 / 75; Pulse 69; Resp 19; Temp 98.2; Pulse Ox 98% on R/A; Weight 108.86 kg; ss Height 5 ft. 7 in. (170.18 cm); 09:57 Body Mass Index 37.59 (108.86 kg, 170.18 cm) ss MDM: 10:03 Patient medically screened. [facility] 10:50 Data reviewed: vital signs, nurses notes. Data interpreted: Pulse oximetry: on room air kb is 98 %. Interpretation: normal. 11:58 Counseling: I had a detailed discussion with the patient and/or guardian regarding: the kb historical points, exam findings, and any diagnostic results supporting the discharge/admit diagnosis, lab results, radiology results, the need for outpatient follow up, a family practitioner, to return to the emergency department if symptoms worsen or persist or if there are any questions or concerns that arise at home. 09/29 10:13 Order name: Flu; Complete Time: 11:10 kb 09/29 10:13 Order name: Strep; Complete Time: 10:59 kb 09/29 10:13 Order name: Chest Pa And Lat (2 Views) XRAY; Complete Time: 11:13 kb 09/29 11:06 Order name: Throat Culture EDMS Administered Medications: 11:11 Drug: Zofran 4 mg Route: PO; sv 12:20 Follow up: Response: No adverse reaction sv Disposition: 15:06 Co-signature as Attending Physician, Jorje Laura MD I agree with the assessment and [facility] plan of care. Disposition: 09/29/18 11:59 Discharged to Home. Impression: Bronchitis, not specified as acute or chronic. - Condition is Stable. - Discharge Instructions: Acute Bronchitis, [id number]. - Prescriptions for Prednisone 20 mg Oral Tablet - take 1 tablet by ORAL route once daily for 5 days; 5 tablet. - Medication Reconciliation Form, Thank You Letter, Antibiotic Education, Prescription Opioid Use form. - Follow up: Emergency Department; When: As needed; Reason: Worsening of condition. Follow up: Private Physician; When: 2 - 3 days; Reason: Recheck today's complaints, Continuance of care, Re-evaluation by your physician. Signatures: Dispatcher [employer] EDFL Lise Guthrie, TOOL CRIB MANAGER-C TOOL CRIB MANAGER-Virajb Laura Nogueira RN RN Jorje Najera MD MD cha Smirch, Shelby, RN RN ss Corrections: (The following items were deleted from the chart) 12:20 11:59 09/29/2018 11:59 Discharged to Home. Impression: Bronchitis, not specified as sv acute or chronic. Condition is Stable. Forms are Medication Reconciliation Form, Thank You Letter, Antibiotic Education, Prescription Opioid Use. Follow up: Emergency Department; When: As needed; Reason: Worsening of condition. Follow up: Private Physician; When: 2 - 3 days; Reason: Recheck today's complaints, Continuance of care, Re-evaluation by your physician. kb
== END 2018-09-29 12:20 | disposition home or self-care (01) ==
LOC: ER 09:39
DX: J40 Bronchitis, not specified as acute or chronic (principal)
CPT/HCPCS: 71046; 87070; 87081; 87804; 99284

== ENCOUNTER 2018-12-06 08:22 | Emergency (ER) | payer MEDICAID ==
[2018-12-06 09:37] LABS: Absolute Lymphocytes (CBC) 1.6 K/uL (0.7-4.9); Absolute Monocytes 0.4 K/uL (0.1-1.3); Absolute Neutrophil 3.2 K/uL (1.8-8.0); Basophils % 0.3 % (0-1.3); Eosinophils % 0.1 % (0-4.4); Hematocrit 42.3 % (36.0-45.0); Lymphocytes % 31.6 % (15.3-44.8); MPV 9.8 fL (7.6-11.3); Monocytes % 6.8 % (3.3-12.3); RBC Red Blood Cell Count 4.76 M/uL (3.86-4.86)
--- NOTE | 2018-12-06 09:42 | RAD REPORT ---
EXAM DESCRIPTION: RAD - Chest Single View - 12/06/2018 9:11 am CLINICAL HISTORY: CHEST PAIN Chest pain. COMPARISON: Chest Pa And Lat (2 Views) dated 09/29/2018; Chest Single View dated 07/11/2018; Chest Sin gle View dated 02/09/2018; Chest Pa And Lat (2 Views) dated 04/30/2017 FINDINGS: Portable technique limits examination quality. The lungs are grossly clear. The heart is normal in size. No displaced fractures. IMPRESSION: No acute intrathoracic process suspected.
[2018-12-06 09:50] LABS: ALT/SGPT 26 U/L (12-78); AST/SGOT 19 U/L (15-37); Albumin 3.6 g/dL (3.4-5.0); Alkaline Phosphatase 89 U/L (45-117); BUN Blood Urea Nitrogen 9 mg/dL (7-18); Bicarbonate 26 mmol/L (21-32); Bilirubin Direct 0.1 mg/dL (0-0.2); Bilirubin Total 0.3 mg/dL (0.2-1.0); Glucose Level 97 mg/dL (74-106); NT PRO-BNP 85 pg/mL (<125); Potassium 3.6 mmol/L (3.5-5.1); Protein, Total 7.1 g/dL (6.4-8.2); Sodium Level 143 mmol/L (136-145); Troponin (Emerg Dept Use Only) < 0.02 ng/mL (0.0-0.045)
[2018-12-06] MEDS ORDERED: DIAZEPAM 5 MG TABLET ONE (09:54)
[2018-12-06] MEDS ORDERED: NA CHLORIDE 0.9% 500 ML ONE (09:54)
[2018-12-06 10:19] LABS: Urine Blood NEGATIVE (NEG); Urine Glucose NEGATIVE (NEG); Urine Protein NEGATIVE (NEG); Urine Specific Gravity 1.015 (1.005-1.030)
--- NOTE | 2018-12-06 10:24 | EDPHYS ---
Physician Documentation [facility] Name: Kendal Contreras Age: 38 yrs Sex: Female : 1980 Arrival Date: 12/06/2018 Time: 08:25 Bed 20 Private MD: ED Physician Giovani Brooks HPI: 12/06 09:11 This 38 yrs old Female presents to ER via Ambulatory with complaints of Chest rn Pain. 09:11 The patient or guardian reports chest pain that is located primarily in the substernal rn area. The pain does not radiate. Associated signs and symptoms: The patient has no apparent associated signs or symptoms. The chest pain is described as a pressure. Duration: The patient or guardian reports multiple episodes, that are intermittent. Modifying factors: The symptoms are alleviated by nothing. the symptoms are aggravated by emotionally stressful situations. Severity of pain: At its worst the pain was mild in the emergency department the pain is unchanged. The patient has experienced similar episodes in the past. Reports has been having chest pain "for awhile", has had negative stress tests x 2, and negative cath, reports put on hypertension medication, denies drug use other than marijuana, doesn't take her dilantin, and reports father last night, and is under a lot of stress lately. . Historical: - Allergies: 08:31 Dilantin; ss - PMHx: 08:31 Anxiety; Arthritis; Asthma; Chronic pain; HEART FAILURE; Hypertension; Migraines; ss Seizures; Bipolar disorder; - PSHx: 08:31 Knee surgery; Hysterectomy; ss - Immunization history:: Adult Immunizations up to date. - Social history:: Smoking status: Patient uses tobacco products, denies chronic smoking, but will smoke occasionally, Patient uses street drugs, marijuana. - Ebola Screening: : Patient denies exposure to infectious person Patient denies travel to an Ebola-affected area in the 21 days before illness onset. - Family history:: not pertinent. - Hospitalizations: : No recent hospitalization is reported. ROS: 09:11 Constitutional: Negative for fever, chills, and weight loss. rn 09:11 Eyes: Negative for injury, pain, redness, and discharge, Neck: Negative for injury, pain, and swelling, Cardiovascular: + chest pain Respiratory: Negative for shortness of breath, cough, wheezing, and pleuritic chest pain, Abdomen/GI: Negative for abdominal pain, nausea, vomiting, diarrhea, and constipation, MS/Extremity: Negative for injury and deformity, Skin: Negative for injury, rash, and discoloration, Neuro: Negative for headache, weakness, numbness, tingling, and seizure. Exam: 09:11 Constitutional: This is a well developed, well nourished patient who is awake, alert, rn appears anxious, but preoccupied with cell phone Head/Face: Normocephalic, atraumatic. Eyes: Pupils equal round and reactive to light, extra-ocular motions intact. Lids and lashes normal. Conjunctiva and sclera are non-icteric and not injected. Cornea within normal limits. Periorbital areas with no swelling, redness, or edema. Neck: Trachea midline, no thyromegaly or masses palpated, and no cervical lymphadenopathy. Supple, full range of motion without nuchal rigidity, or vertebral point tenderness. No Meningismus. Cardiovascular: Tachycardic, regular, no murmur Respiratory: Lungs have equal breath sounds bilaterally, clear to auscultation. No increased work of breathing, no retractions or nasal flaring. Skin: Warm, dry MS/ Extremity: Pulses equal, no cyanosis. Neuro: Awake and alert, GCS 15, oriented to person, place, time, and situation. Motor strength 5/5 in all extremities. Sensory grossly intact. Cerebellar exam normal. Normal gait. Vital Signs: 08:25 BP 154 / 109; Pulse 105; Resp 16; Temp 97.4(TE); Pulse Ox 100% on R/A; Weight 104.33 ss kg; Height 5 ft. 7 in. (170.18 cm); Pain 8/10; 10:02 BP 127 / 90; Pulse 97; Resp 26; Pulse Ox 99% ; bp 11:00 BP 117 / 77; Pulse 93; Resp 19; Pulse Ox 99% ; bp 08:25 Body Mass Index 36.02 (104.33 kg, 170.18 cm) ss MDM: 08:36 Patient medically screened. rn 10:22 Differential diagnosis: acute myocardial infarction, anxiety, costochondritis, rn esophagitis, gastritis, pleurisy, pneumothorax. Data reviewed: vital signs, nurses notes, lab test result(s), EKG, radiologic studies, plain films, and as a result, I will discharge patient. Counseling: I had a detailed discussion with the patient and/or guardian regarding: the historical points, exam findings, and any diagnostic results supporting the discharge/admit diagnosis, lab results, radiology results, the need for outpatient follow up, to return to the emergency department if symptoms worsen or persist or if there are any questions or concerns that arise at home. Special discussion: Based on the patient's history, exam, and Dx evaluation, there is no indication for emergent intervention or inpatient Tx. It is understood by the patient/guardian that if the Sx's persist or worsen they need to return immediately for re-evaluation. I discussed with the patient/guardian in detail that at this point there is no indication for admission to the hospital. It is understood, however, that if the symptoms persist or worsen the patient needs to return immediately for re-evaluation. 11:23 Response to treatment: the patient's symptoms have markedly improved after treatment, rn and as a result, I will discharge patient. 12/06 08:43 Order name: Basic Metabolic Panel; Complete Time: 10: rn 12/06 08:43 Order name: CBC with Diff; Complete Time: 09:44 rn 12/06 08:43 Order name: LFT's; Complete Time: 10: rn 12/06 08:43 Order name: NT PRO-BNP; Complete Time: 10: rn 12/06 08:43 Order name: Troponin (emerg Dept Use Only); Complete Time: 10: rn 12/06 09:29 Order name: Urine Dipstick--Ancillary (enter results); Complete Time: 10:21 bd 12/06 08:43 Order name: XRAY Chest (1 view); Complete Time: 09:44 rn 12/06 08:43 Order name: EKG; Complete Time: 08:44 rn 12/06 08:43 Order name: Cardiac monitoring; Complete Time: 09:37 rn 12/06 08:43 Order name: EKG - Nurse/Tech; Complete Time: 08:55 rn 12/06 08:43 Order name: IV Saline Lock; Complete Time: 09: rn 12/06 09:29 Order name: Urine --Ancillary (enter results); Complete Time: 10:21 bd 12/06 08:43 Order name: Labs collected and sent; Complete Time: : rn 12/06 08:43 Order name: O2 Per Protocol; Complete Time: 09:37 rn 12/06 08:43 Order name: O2 Sat Monitoring; Complete Time: 09:37 rn 12/06 08:43 Order name: Urine Test (obtain specimen); Complete Time: 09:26 rn 12/06 08:43 Order name: Urine Dipstick-Ancillary (obtain specimen); Complete Time: 09:26 rn Administered Medications: 09:10 Drug: NS 0.9% 500 ml Route: IV; Rate: bolus; Site: right antecubital; bp 10:30 Follow up: IV Status: Completed infusion; IV Intake: 500ml bp 09:10 Drug: Valium 5 mg Route: PO; bp 10:30 Follow up: Response: Anxiety decreased bp Disposition: 12/06/18 10:23 Discharged to Home. Impression: Chest pain, unspecified. - Condition is Stable. - Discharge Instructions: Nonspecific Chest Pain. - Medication Reconciliation Form, Thank You Letter, Antibiotic Education, Prescription Opioid Use form. - Follow up: Private Physician; When: As needed; Reason: Recheck today's complaints, Re-evaluation by your physician. - Problem is chronic. - Symptoms have improved. Signatures: Dispatcher [employer] EDMS Giovani Brooks MD MD rn Smirch, Shelby, RN RN ss Peltier, Brian, RN RN bp Corrections: (The following items were deleted from the chart) 11:31 10:23 12/06/2018 10:23 Discharged to Home. Impression: Chest pain, unspecified. bp Condition is Stable. Forms are Medication Reconciliation Form, Thank You Letter, Antibiotic Education, Prescription Opioid Use. Follow up: Private Physician; When: As needed; Reason: Recheck today's complaints, Re-evaluation by your physician. Problem is chronic. Symptoms have improved. rn
--- NOTE | 2018-12-06 10:24 | ER ---
Nurse's Notes [facility] Name: Kendal Contreras Age: 38 yrs Sex: Female : 1980 Arrival Date: 12/06/2018 Time: 08:25 Bed 20 Private MD: Diagnosis: Chest pain, unspecified Presentation: 12/06 08:25 Presenting complaint: Patient states: "I've had chest pain for years, but every time I ss come here they just keep checking my bipolar and not my heart." Pt then stated that her father last night and has made everything worse. Pt states that she has had blood work at her PCP's office that was negative for any cardiac event. Transition of care: patient was not received from another setting of care. Onset of symptoms is unknown. Risk Assessment: Do you want to hurt yourself or someone else? Patient reports no desire to harm self or others. Initial Sepsis Screen: Does the patient meet any 2 criteria? No. Patient's initial sepsis screen is negative. Does the patient have a suspected source of infection? No. Patient's initial sepsis screen is negative. Care prior to arrival: None. 08:25 Method Of Arrival: Ambulatory ss 08:25 Acuity: CHARLEY 3 ss Triage Assessment: 08:30 General: Appears in no apparent distress. comfortable, obese, Behavior is cooperative, bp appropriate for age, anxious. Pain: Complains of pain in chest. Cardiovascular: No deficits noted. Rhythm is sinus rhythm. Historical: - Allergies: 08:31 Dilantin; ss - PMHx: 08:31 Anxiety; Arthritis; Asthma; Chronic pain; HEART FAILURE; Hypertension; Migraines; ss Seizures; Bipolar disorder; - PSHx: 08:31 Knee surgery; Hysterectomy; ss - Immunization history:: Adult Immunizations up to date. - Social history:: Smoking status: Patient uses tobacco products, denies chronic smoking, but will smoke occasionally, Patient uses street drugs, marijuana. - Ebola Screening: : Patient denies exposure to infectious person Patient denies travel to an Ebola-affected area in the 21 days before illness onset. - Family history:: not pertinent. - Hospitalizations: : No recent hospitalization is reported. Screenin:30 Abuse screen: Denies threats or abuse. Denies injuries from another. Nutritional bp screening: No deficits noted. Tuberculosis screening: No symptoms or risk factors identified. Fall Risk None identified. Assessment: 08:30 General: Appears in no apparent distress. comfortable, obese, Behavior is calm, bp cooperative, appropriate for age. Pain: Complains of pain in chest Pain does not radiate. Pain began suddenly, years ago. Neuro: Level of Consciousness is awake, alert, obeys commands, Oriented to person, place, time, situation, Appropriate for age. Cardiovascular: Capillary refill < 3 seconds Patient's skin is warm and dry. Respiratory: Airway is patent Respiratory effort is even, unlabored, Respiratory pattern is regular, symmetrical. GI: No signs and/or symptoms were reported involving the gastrointestinal system. : No signs and/or symptoms were reported regarding the genitourinary system. EENT: No deficits noted. Derm: No deficits noted. Musculoskeletal: No signs and/or symptoms reported regarding the musculoskeletal system. 10:00 Reassessment: ALL CURRENT ORDERS COMPLETED, RESULTS PENDING. bp 11:29 Reassessment: PT D/C HOME AMBULATORY WITH FAMILY, DX WITH NONSPECIFIC CHEST PAIN. LEFT bp WITHOUT WAITING FOR PAPERS. Vital Signs: 08:25 BP 154 / 109; Pulse 105; Resp 16; Temp 97.4(TE); Pulse Ox 100% on R/A; Weight 104.33 ss kg; Height 5 ft. 7 in. (170.18 cm); Pain 8/10; 10:02 BP 127 / 90; Pulse 97; Resp 26; Pulse Ox 99% ; bp 11:00 BP 117 / 77; Pulse 93; Resp 19; Pulse Ox 99% ; bp 08:25 Body Mass Index 36.02 (104.33 kg, 170.18 cm) ED Course: 08:25 Patient arrived in ED. ss 08:30 Triage completed. ss 08:30 Patient has correct armband on for positive identification. Placed in gown. Bed in low bp position. Call light in reach. Side rails up X2. Adult w/ patient. classroom monitor on. Pulse ox on. NIBP on. 08:31 Arm band placed on right wrist. ss 08:36 Giovani Brooks MD is Attending Physician. rn 08:52 EKG done, by dentures lab technician. reviewed by Giovani Brooks MD. at1 08:54 Jae Mcknight, RN is Primary Nurse. bp 09:12 XRAY Chest (1 view) In Process Unspecified. EDMS 09:25 Initial lab(s) drawn, by oh, sent to lab. Inserted saline lock: 22 gauge in right [facility] antecubital area, using aseptic technique. Blood collected. :25 Urine collected: clean catch specimen, clear. [facility] 09:26 Basic Metabolic Panel Sent. [facility] 09:26 CBC with Diff Sent. [facility] 09:26 LFT's Sent. [facility] 09: NT PRO-BNP Sent. [facility] 09: Troponin (emerg Dept Use Only) Sent. [facility] Administered Medications: 09: Drug: NS 0.9% 500 ml Route: IV; Rate: bolus; Site: right antecubital; bp 10:30 Follow up: IV Status: Completed infusion; IV Intake: 500ml bp 09:10 Drug: Valium 5 mg Route: PO; bp 10:30 Follow up: Response: Anxiety decreased bp Intake: 10:30 IV: 500ml; Total: 500ml. bp Outcome: 10:23 Discharge ordered by . rn 11:31 Patient left the ED. bp Signatures: Dispatcher [employer] EDWA Giovani Brooks MD MD rn Smirch, Shelby, RN RN Merary Pelayo, waste and batting waste chopper EKG Tat1 Janice Del Toro [facility] Jae Mcknight, RN RN bp
--- NOTE | 2018-12-06 15:18 | EKG ---
Test Date: 2018-12-06 Test Time: 07:43:00 Acquisition Lead: RADHA MEASUREMENT RESULTS: Intervals: Rate: 94 GA: 142 QRSD: 86 QT: 370 QTc: 462 [place]: P: 38 GA: 142 QRS: 2 T: 28 INTERPRETIVE STATEMENTS: Normal sinus rhythm Normal ECG Compared to ECG 08/15/2018 05:05:33 Sinus arrhythmia no longer present Electronically Signed On 12-06-18 15:18:07 CDT by Vitaliy Judge
== END 2018-12-06 11:31 | disposition home or self-care (01) ==
LOC: ER 08:22
DX: R07.9 Chest pain, unspecified (principal); F41.9 Anxiety disorder, unspecified; J45.909 Unspecified asthma, uncomplicated; I11.0 Hypertensive heart disease with heart failure; I50.9 Heart failure, unspecified; F31.9 Bipolar disorder, unspecified; Z72.0 Tobacco use; Z88.8 Allergy status to other drugs, medicaments and biological substances
CPT/HCPCS: 36415; 71045; 80048; 80076; 81003; 81025; 83880; 84484; 85025; 93005; 96360; 99284